=== PATIENT | male | born 1940 | race Hispanic/Latino ===

== ENCOUNTER 2019-08-19 13:07 | Inpatient (IN) | payer MEDICARE, OTHER ==
[~2019-08-19] VITALS: Ht 172.7 cm; Wt 50.8 kg
[2019-08-19] VITALS (7 sets, daily range): BP systolic 108–140; BP diastolic 56–69
[2019-08-19] MEDS ORDERED: SODIUM CHLORIDE 0.9% 1000ML 1,000 ML IV STA (13:59)
[2019-08-19] MEDS ORDERED: PANTOPRAZOLE 40 MG 10ML VIAL IV STA (13:59)
[2019-08-19] MEDS ORDERED: SODIUM CHLORIDE 0.9% 250ML 250 ML IV ONE (14:00)
[2019-08-19] MEDS ORDERED: FUROSEMIDE INJ 10 MG/ML 2 ML VIAL IV PRN (14:00)
[2019-08-19] MEDS ORDERED: DIATRIZOATE MEGL/DIATRIZOA SOD 30 ML BTL PO ONE (14:22)
[2019-08-19 14:23] LABS: BASOPHILS # (AUTO) 0.1 (0.0-0.1); BASOPHILS % 0.7 % (0.0-1.0); EOSINOPHILS # (AUTO) 0.1 (0.0-0.4); EOSINOPHILS % 1.4 % (0.0-6.0); HEMATOCRIT 21.1 % (38.2-49.6); LYMPHOCYTES # (AUTO) 1.1 (1.0-3.2); LYMPHOCYTES % 15.9 % (18.0-39.1); MEAN CORPUSCULAR HEMOGLOBIN 27.8 pg (28-32); MEAN CORPUSCULAR HGB CONC 29.4 g/dL (31-35); MEAN CORPUSCULAR VOLUME 94.6 fL (81-99); MONOCYTES # (AUTO) 0.8 (0.2-0.8); MONOCYTES % 11.2 % (4.4-11.3); NEUTROPHILS % 70.4 % (38.7-80.0); PLATELET COUNT 333 x10e3/uL (140-360); RED BLOOD COUNT 2.23 x10e6/uL (4.3-5.7); RED CELL DISTRIBUTION WIDTH 19.4 % (11.7-14.4)
[2019-08-19 14:33] LABS: INR 0.99; PROTHROMBIN TIME 13.7 seconds (11.9-14.5)
[2019-08-19 14:34] LABS: PARTIAL THROMBOPLASTIN TIME 31.9 seconds (23.8-35.5)
[2019-08-19 14:37] LABS: HEMOGLOBIN 6.2 g/dL (14.0-18.0)
--- NOTE | 2019-08-19 14:37 | Diagnostic Imaging Report ---
EXAMINATION: CHEST SINGLE (PORTABLE) INDICATION: Weakness COMPARISON: None FINDINGS: LINES/TUBES:EKG leads overlie the chest. LUNGS:The lungs are well-inflated. No focal consolidation or pulmonary edema. PLEURA:No pleural effusion or pneumothorax. MEDIASTINUM:The cardiomediastinal silhouette appears normal in size and shape. Atherosclerotic calcifications of the thoracic aorta. BONES/SOFT TISSUES:No acute osseous injury. ABDOMEN:No free air under the diaphragm. IMPRESSION: No focal pneumonia or pulmonary edema. Signed by: Roxana Borrego MD on 08/19/2019 2:34 PM
[2019-08-19 14:47] LABS: ALANINE AMINOTRANSFERASE 19 IU/L (0-55); ALBUMIN 3.1 g/dL (3.5-5.0); ALBUMIN/GLOBULIN RATIO 1.1 (0.8-2.0); ALKALINE PHOSPHATASE 79 IU/L (40-150); BLOOD UREA NITROGEN 26 mg/dL (7-26); BUN/CREATININE RATIO 27 (6-25); CALCIUM 8.1 mg/dL (8.4-10.2); CARBON DIOXIDE 24 mmol/L (22-29); CHLORIDE 103 mmol/L (98-107); CREATINE KINASE 130 IU/L (30-200); CREATININE, SERUM 0.95 mg/dL (0.72-1.25); EST GLOMERULAR FILTRATION RATE > 60 ML/MIN (60-); GLUCOSE 116 mg/dL (74-118); SODIUM 134 mmol/L (136-145)
[2019-08-19 14:53] LABS: AMYLASE 39 U/L (25-125); LIPASE 57 U/L (8-78)
[2019-08-19] MEDS ORDERED: OCTREOTIDE ACETATE 0.05 MG/ML AMP IV ONE (15:00)
[2019-08-19] MEDS ORDERED: MIDAZOLAM HCL 2 MG/2 ML VIAL ONE (15:17)
--- NOTE | 2019-08-19 15:26 | Emergency Department Note ---
History of Present Illnes History of Present Illness Chief Complaint: Abdominal Complaints History of Present Illness This is a 79 year old male SENT BY DR. YAMILKA ENCISO FOR ADMISSION TO DR. YOUNG. CLIENT STATES THAT HE HAS BEEN HAVING WEIGHT LOSS FOR YEARS AND THE FEELING OF HAVING FOOD STUCK IN HIS ESOPHAGUS, STATES THAT HE HAS BEEN HAVING THE PAIN AND NOT BEING ABLE TO EAT ANY FULL MEAL. HGB WAS AT 6.3 RECENTLY. INTE RMITTENT BLACK STOOLS Historian: Patient Arrival Mode: Car Crab Steamer Required: No Onset (how long ago): year(s) Radiation: Reports non-radiation Severity: moderate Onset quality: gradual Timing of current episode: constant Chronicity: new Context: Denies recent illness Relieving factors: none Exacerbating factors: none Associated symptoms: Reports denies other symptoms Treatments prior to arrival: none Past Medical/Family History Physician Review I have reviewed the patient's past medical and family history. Any updates have been documented here. Past Medical History Recent Fever: No Clinical Suspicion of Infectio: No New/Unexplained Change in Ment: No Past Medical History: Diabetes Social History Smoking Cessation: Former smoker Counseling Performed: No Alcohol Use: None Any Illegal Drug Use: No TB Exposure/Symptoms: No Physically hurt or threatened: No Other Any Pre-Existing Lines (PICC,: No Is patient up to date on immun: Yes Last Flu: utd Last Pneumovax: utd Review of Systems Review of Systems Constitutional: Reports as per HPI, Reports other (WEIGHT LOSS) EENTM: Reports no symptoms Cardiovascular: Reports no symptoms Respiratory: Reports no symptoms Gastrointestinal: Reports as per HPI, Reports abdominal pain (INTERMITTENT RETA ABD PAIN), Reports other (BLACK STOOLS) Genitourinary: Reports no symptoms Musculoskeletal: Reports no symptoms Integumentary: Reports no symptoms Neurological: Reports no symptoms Psychological: Reports no symptoms Endocrine: Reports no symptoms Hematological/Lymphatic: Reports no symptoms Physical Exam Related Data Allergies: Coded Allergies: No Known Allergies (Unverified , 08/19/19) Triage Vital Signs Vital Signs Date Time Temp Pulse Resp B/P (MAP) Pulse Ox O2 Delivery O2 Flow Rate FiO2 08/19/19 13:42 98.8 86 16 117/59 100 Vital signs reviewed: Yes Physical Exam CONSTITUTIONAL Constitutional: Present cachectic, Present ill appearing HENT HENT: Present normocephalic, Present atraumatic, Present oropharynx clear/moist, Present nose normal HENT L/R: Present left ext ear normal, Present right ext ear normal EYES Eyes: Reports PERRL, Reports conjunctivae normal NECK Neck: Present ROM normal PULMONARY Pulmonary: Present effort normal, Present breath sounds normal CARDIOVASCULAR Cardiovascular: Present regular rhythm, Present heart sounds normal, Present capillary refill normal, Present normal rate GASTROINTESTINAL Abdominal: Present soft, Present nontender, Present bowel sounds normal GENITOURINARY Genitourinary: Present exam deferred SKIN Skin: Present warm, Present dry MUSCULOSKELETAL Musculoskeletal: Present ROM normal NEUROLOGICAL Neurological: Present alert, Present oriented x 3, Present no gross motor or sensory deficits PSYCHOLOGICAL Psychological: Present mood/affect normal, Present judgement normal Results Laboratory Result Diagram: 08/19/19 1410 08/19/19 1410 Laboratory Laboratory Tests Test 08/19/19 14:10 White Blood Count 7.12 x10e3/uL (4.8-10.8) Red Blood Count 2.23 x10e6/uL (4.3-5.7) Hemoglobin 6.2 g/dL (14.0-18.0) Hematocrit 21.1 % (38.2-49.6) Mean Corpuscular Volume 94.6 fL (81-99) Mean Corpuscular Hemoglobin 27.8 pg (28-32) Mean Corpuscular Hemoglobin Concent 29.4 g/dL (31-35) Red Cell Distribution Width 19.4 % (11.7-14.4) Platelet Count 333 x10e3/uL (140-360) Neutrophils (%) (Auto) 70.4 % (38.7-80.0) Lymphocytes (%) (Auto) 15.9 % (18.0-39.1) Monocytes (%) (Auto) 11.2 % (4.4-11.3) Eosinophils (%) (Auto) 1.4 % (0.0-6.0) Basophils (%) (Auto) 0.7 % (0.0-1.0) Neutrophils # (Auto) 5.0 (2.1-6.9) Lymphocytes # (Auto) 1.1 (1.0-3.2) Monocytes # (Auto) 0.8 (0.2-0.8) Eosinophils # (Auto) 0.1 (0.0-0.4) Basophils # (Auto) 0.1 (0.0-0.1) Absolute Immature Granulocyte (auto 0.03 x10e3/uL (0-0.1) Prothrombin Time 13.7 seconds (11.9-14.5) Prothromb Time International Ratio 0.99 Activated Partial Thromboplast Time 31.9 seconds (23.8-35.5) Sodium Level 134 mmol/L (136-145) Potassium Level 4.0 mmol/L (3.5-5.1) Chloride Level 103 mmol/L (98-107) Carbon Dioxide Level 24 mmol/L (22-29) Anion Gap 11.0 mmol/L (8-16) Blood Urea Nitrogen 26 mg/dL (7-26) Creatinine 0.95 mg/dL (0.72-1.25) Estimat Glomerular Filtration Rate > 60 ML/MIN (60-) BUN/Creatinine Ratio 27 (6-25) Glucose Level 116 mg/dL (74-118) Calcium Level 8.1 mg/dL (8.4-10.2) Total Bilirubin 0.3 mg/dL (0.2-1.2) Aspartate Amino Transf (AST/SGOT) 24 IU/L (5-34) Alanine Aminotransferase (ALT/SGPT) 19 IU/L (0-55) Alkaline Phosphatase 79 IU/L (40-150) Creatine Kinase 130 IU/L (30-200) Creatine Kinase MB 3.10 ng/mL (0-5.0) Troponin I 0.007 ng/mL (0-0.300) Total Protein 5.8 g/dL (6.5-8.1) Albumin 3.1 g/dL (3.5-5.0) Globulin 2.7 g/dL (2.3-3.5) Albumin/Globulin Ratio 1.1 (0.8-2.0) Amylase Level 39 U/L (25-125) Lipase 57 U/L (8-78) Lab results reviewed: Yes Imaging Imaging results reviewed: Yes Impressions EXAMINATION: CHEST SINGLE (PORTABLE) INDICATION: Weakness COMPARISON: None FINDINGS: LINES/TUBES:EKG leads overlie the chest. LUNGS:The lungs are well-inflated. No focal consolidation or pulmonary edema. PLEURA:No pleural effusion or pneumothorax. MEDIASTINUM:The cardiomediastinal silhouette appears normal in size and shape. Atherosclerotic calcifications of the thoracic aorta. BONES/SOFT TISSUES:No acute osseous injury. ABDOMEN:No free air under the diaphragm. IMPRESSION: No focal pneumonia or pulmonary edema. Signed by: Roxana Borrego MD on 08/19/2019 2:34 PM Assessment & Plan Medical Decision Making MDM SENT FOR ANEMIA & WT LOSS - CHECK CBC, CHEM'S, PT/PTT, DHRUV/LIPASE, CT ABD/PELVIS - EVAL FOR GI BLOOD LOSS, SEVERE ANEMIA REQUIRING BLOOD TRANSFUSION, PANCREATITIS, RENAL INSUFF Reassessment Reassessment D/W DR BRANHAM AND DR Laverne [place] Assessment & Plan Final Impression: (1) Weight loss (2) GI bleed Depart Disposition: ADMITTED Last Vital Signs Date Time Temp Pulse Resp B/P (MAP) Pulse Ox O2 Delivery O2 Flow Rate FiO2 08/19/19 14:24 98.1 71 13 121/59 100 Medications in the ED Pantoprazole Sodium 80 mg ONCE STAT IV Last administered on 08/19/19at 14:45; Admin Dose 80 MG; Start 08/19/19 at 13:59; Stop 08/19/19 at 14:23; Status DC Sodium Chloride 1,000 ml @ 0 mls/hr Q0M STAT IV Last administered on 08/19/19at 14:45; Admin Dose 999 MLS/HR; Start 08/19/19 at 13:59; Stop 08/19/19 at 14:03; Status DC Sodium Chloride 250 ml @ 0 mls/hr ONCE ONCE IV ; Start 08/19/19 at 14:00; Stop 08/19/19 at 14:03; Status DC Furosemide 20 mg ONCE PRN IV SHORTNESS OF BREATH; Start 08/19/19 at 14:00; Stop 09/18/19 at 13:59 Diatrizoate Meglum/ Diatrizoate Sod 30 ml STK-MED ONCE PO ; Start 08/19/19 at 14:22; Stop 08/19/19 at 14:16; Status DC Pantoprazole Sodium 40 mg Q12HR IV ; Start 08/19/19 at 21:00; Stop 09/18/19 at 20:59; Status UNV Octreotide Acetate 0.05 mg ONCE ONCE IV ; Start 08/19/19 at 15:00; Stop 08/19/19 at 15:02; Status DC Octreotide Acetate 500 mcg/ Sodium Chloride 2 ml @ 2 mls/hr Q10H IV ; Start 08/19/19 at 15:00; Stop 09/18/19 at 14:59; Status UNV Dextrose/Sodium Chloride 1,000 ml @ 100 mls/hr Q10H IV ; Start 08/19/19 at 15:00; Stop 08/20/19 at 10:59; Status UNV DERICK BAILEY MD Aug 19, 2019 15:26
[2019-08-19] MEDS: OCTREOTIDE ACETATE IV SCH (16:00)
[2019-08-19] MEDS: DEXTROSE 5%/0.9% SOD CHL 1,000 ML IV SCH (16:00)
[2019-08-19] MEDS: SODIUM CHLORIDE 0.9% IV SCH (16:00)
--- NOTE | 2019-08-19 16:01 | NUR ---
consent for blood signed and placed on the clipboard
--- NOTE | 2019-08-19 16:31 | Diagnostic Imaging Report ---
EXAM: CT Abdomen and Pelvis WITH intravenous contrast INDICATION: Abdominal pain COMPARISON: Chest radiograph of earlier the same day TECHNIQUE: Abdomen and pelvis were scanned utilizing a multidetector helical scanner from the lung base to the pubic symphysis after administration of IV contrast. Coronal and sagittal reformations were obtained. Routine protocol was performed. Scan was performed during portal venous phase. IV CONTRAST: 100mL of Isovue 370 ORAL CONTRAST: Gastrografin RADIATION DOSE: Total DLP: 172 mGy*cm Dose modulation, iterative reconstruction, and/or weight based adjustment of the mA/kV was utilized to reduce the radiation dose to as low as reasonably achievable. FINDINGS: LOWER THORAX: Partially visualized mild bronchial wall thickening and distal bronchial mucus plugging in the right middle lobe and lingula, possibly related to aspiration. HEPATOBILIARY: No focal liver lesion. No biliary ductal dilation. Mild hepatic steatosis. Unremarkable gallbladder. SPLEEN: No splenomegaly. PANCREAS: No focal masses or ductal dilatation. ADRENALS: No adrenal nodules. KIDNEYS/URETERS: Mild bilateral hydronephrosis. No definite obstructing calculus. No solid renal mass lesion. 2.7 cm left upper pole renal cyst. PELVIC ORGANS/BLADDER: Bladder distention and irregular appearance of the bladder wall without focal mass lesion. The prostate is enlarged, measuring up to 5.9 x 5.1 x 5.4 cm (volume estimate 85 cc). PERITONEUM / RETROPERITONEUM: No free air or fluid. LYMPH NODES: No lymphadenopathy. VESSELS: Scattered atherosclerotic calcifications of the nonaneurysmal abdominal aorta and major branches. GI TRACT: Distended stomach filled with contrast. Diffuse wall thickening and edematous appearance of the distal antrum and pyloric region where the wall measures up to 2.5 cm. No focal mass. BONES AND SOFT TISSUES: No acute osseous injury. Degenerative changes of the visualized spine. No suspicious lytic or blastic lesions. IMPRESSION: Diffuse distal stomach wall thickening measuring up to 2.5 cm. No focal mass. Findings can be seen with an infectious/inflammatory etiology such as gastritis or alternatively in the setting of a lymphoproliferative process. Marked prostatomegaly. Distended bladder with irregular appearance of the bladder wall without focal mass lesion. Findings are suggestive of chronic bladder outlet obstruction. Mild associated bilateral hydronephrosis without obstructing calculus. Signed by: Roxana Borrego MD on 08/19/2019 4:28 PM
[2019-08-19] MEDS ORDERED: METFORMIN HCL500 MG PO (16:49)
[2019-08-19] MEDS ORDERED: IRON PO (16:49)
[2019-08-19] MEDS ORDERED: SODIUM CHLORIDE 0.9% 250ML 250 ML ONE (17:07)
[2019-08-19] MEDS ORDERED: SODIUM CHLORIDE 0.9% 50ML 50 ML ONE (19:57)
[2019-08-19] MEDS ORDERED: IOPAMIDOL 370 MG/ML 200 ML INFUS..BTL INJ ONE (19:57)
[2019-08-19 20:51] LABS: BASOPHILS % 0.5 % (0.0-1.0); EOSINOPHILS # (AUTO) 0.2 (0.0-0.4); EOSINOPHILS % 3.1 % (0.0-6.0); LYMPHOCYTES # (AUTO) 1.3 (1.0-3.2); LYMPHOCYTES % 21.2 % (18.0-39.1); MEAN CORPUSCULAR HEMOGLOBIN 27.9 pg (28-32); MEAN CORPUSCULAR HGB CONC 29.7 g/dL (31-35); MONOCYTES % 16.8 % (4.4-11.3); NEUTROPHILS # (AUTO) 3.4 (2.1-6.9); NEUTROPHILS % 58.1 % (38.7-80.0); PLATELET COUNT 263 x10e3/uL (140-360); RED BLOOD COUNT 2.15 x10e6/uL (4.3-5.7); RED CELL DISTRIBUTION WIDTH 19.3 % (11.7-14.4)
[2019-08-19] MEDS: PANTOPRAZOLE 40 MG 10ML VIAL IV SCH (20:52)
[2019-08-19 21:03] LABS: HEMATOCRIT 20.2 % (38.2-49.6)
--- NOTE | 2019-08-19 23:21 | NUR ---
Patient seen and evaluated History of present illness: 79-year-old gentleman who presented to the emergency department as advised by his primary care physician for evaluation of left open weight and feeling like his food gets stuck in his esophagus. The patient has not been eating well and was noted to have severe anemia hemoglobin was 6.3. In addition to this complaining of intermittent black stools. Denies hematemesis. Has been complaining of abdominal pain, not significant. There is no history of chest pain, no shortness of breath, no fever no chills. I went ahead and discussed patient condition with Dr. Milad Higgins and the plan is for the patient to undergo EGD. The patient did have CT scan of the abdomen done and the findings were that of diffuse distal stomach wall thickening measuring up to 2.5 cm. No focal mass. Findings could be with an infectious/inflammatory etiology such as gastritis or alternatively in the setting of a lymphoproliferative process. Other findings were that of marketed prostatomegaly. Distended bladder with irregular appearance of the bladder wall without focal mass lesions. Findings were suggestive of chronic bladder outlet obstruction. Mild associated bilateral hydronephrosis without extubation [id number] obstructing calculus. We went ahead and proceeded to order a transfusion of packed red blood cells. Past medical history: There is a history of diabetes mellitus type 2, no history myocardial infarction. No CVA. No previous gastrointestinal problems. Family history: Noncontributory. Social history: No tobacco. No alcohol abuse. Allergies: No known drug allergies. Review of system: Constitutional: No Fever, No chills, No General weakness HEENT: No headaches. Cardiovascular: Denies chest pain, palpitations, PND, swelling of the legs. Respiratory: No Cough, hemoptysis or SOB GI: Denies Nausea/V/D, hematemesis, melena. : Denies Hematuria, Dysuria, Frequency Musculoskeletal: Denies joint pain Neuro: No focal weakness Psych: No anxiety or depression. Skin: No rashes, Itching, Hives Physical exam: General patient alert oriented person time place. Severely malnourished patient. Underweight. Vital signs: Blood pressure 117/59, respiration 16, pulse 86, temperature 98.8 HEENT: No gross abnormalities Neck: Supple no JVD Lungs: Clear to auscultation Heart: Regular rate and rhythm, no murmurs no gallops Abdomen: Soft non tender, no guarding. Extremities: No edema Neurologic: Alert oriented 3, no focal weakness. Psychiatrist: Normal mood, normal judgment. Skin: No rashes Lab data: Hemoglobin 6.2, WBC 7.12, platelet count 333,000. Sodium 134, potassium 4.0, chloride 103, CO2 24, BUN 26, creatinine 0.95 Chest x-rays: No focal pneumonia or pulmonary edema. Medications in the ED Pantoprazole Sodium 80 mg ONCE STAT IV Last administered on 08/19/19at 14:45; Admin Dose 80 MG; Start 08/19/19 at 13:59; Stop 08/19/19 at 14:23; Status DC Sodium Chloride 1,000 ml @ 0 mls/hr Q0M STAT IV Last administered on 08/19/19at 14:45; Admin Dose 999 MLS/HR; Start 08/19/19 at 13:59; Stop 08/19/19 at 14:03; Status DC Sodium Chloride 250 ml @ 0 mls/hr ONCE ONCE IV ; Start 08/19/19 at 14:00; Stop 08/19/19 at 14:03; Status DC Furosemide 20 mg ONCE PRN IV SHORTNESS OF BREATH; Start 08/19/19 at 14:00; Stop 09/18/19 at 13:59 Diatrizoate Meglum/ Diatrizoate Sod 30 ml STK-MED ONCE PO ; Start 08/19/19 at 14:22; Stop 08/19/19 at 14:16; Status DC Pantoprazole Sodium 40 mg Q12HR IV ; Start 08/19/19 at 21:00; Stop 09/18/19 at 20:59; Status UNV Octreotide Acetate 0.05 mg ONCE ONCE IV ; Start 08/19/19 at 15:00; Stop 08/19/19 at 15:02; Status DC Octreotide Acetate 500 mcg/ Sodium Chloride 2 ml @ 2 mls/hr Q10H IV ; Start 08/19/19 at 15:00; Stop 09/18/19 at 14:59; Status UNV Dextrose/Sodium Chloride 1,000 ml @ 100 mls/hr Q10H IV ; Start 08/19/19 at 15:00; Stop 08/20/19 at 10:59; Status UNV Assessment: Severe anemia GI bleeding Weight loss Diabetes mellitus type 2 Plan of care: Request GI consultation Transfusion of Packed Red blood cells. Monitor I's and O's. Glycemic control
[2019-08-20] VITALS (16 sets, daily range): BP systolic 98–178; BP diastolic 59–87
--- NOTE | 2019-08-20 00:48 | NUR ---
SPOKE TO MD YOUNG. NEW ORDERS RECEIVED.
[2019-08-20] MEDS ORDERED: DEXTROSE 50% SYRINGE 50 ML IV PRN (01:00)
[2019-08-20] MEDS: DEXTROSE 5%/0.9% SOD CHL 1,000 ML IV SCH (01:39)
[2019-08-20] MEDS ORDERED: SODIUM CHLORIDE 0.9% 250ML 250 ML ONE (01:39)
[2019-08-20 02:46] LABS: BASOPHILS % 0.7 % (0.0-1.0); EOSINOPHILS # (AUTO) 0.2 (0.0-0.4); EOSINOPHILS % 3.4 % (0.0-6.0); HEMATOCRIT 25.4 % (38.2-49.6); HEMOGLOBIN 7.7 g/dL (14.0-18.0); LYMPHOCYTES % 17.5 % (18.0-39.1); MEAN CORPUSCULAR HEMOGLOBIN 27.8 pg (28-32); MEAN CORPUSCULAR HGB CONC 30.3 g/dL (31-35); MEAN CORPUSCULAR VOLUME 91.7 fL (81-99); MONOCYTES # (AUTO) 0.9 (0.2-0.8); MONOCYTES % 14.8 % (4.4-11.3); NEUTROPHILS # (AUTO) 3.7 (2.1-6.9); NEUTROPHILS % 63.3 % (38.7-80.0); PLATELET COUNT 295 x10e3/uL (140-360); RED BLOOD COUNT 2.77 x10e6/uL (4.3-5.7); RED CELL DISTRIBUTION WIDTH 18.4 % (11.7-14.4)
--- NOTE | 2019-08-20 04:06 | NUR ---
Dr. Tolbert ordered for labs and stated it an be collected early am, nurse made aware.
--- NOTE | 2019-08-20 04:50 | NUR ---
PATIENT RECEIVED 2 UNITS OF BLOOD. NO ADVERSE REACTIONS NOTED.
[2019-08-20 06:48] LABS: BASOPHILS # (AUTO) 0.1 (0.0-0.1); EOSINOPHILS # (AUTO) 0.2 (0.0-0.4); EOSINOPHILS % 2.9 % (0.0-6.0); HEMATOCRIT 31.8 % (38.2-49.6); LYMPHOCYTES # (AUTO) 1.1 (1.0-3.2); LYMPHOCYTES % 17.1 % (18.0-39.1); MEAN CORPUSCULAR HEMOGLOBIN 28.4 pg (28-32); MEAN CORPUSCULAR HGB CONC 31.4 g/dL (31-35); MEAN CORPUSCULAR VOLUME 90.3 fL (81-99); MONOCYTES # (AUTO) 0.9 (0.2-0.8); NEUTROPHILS # (AUTO) 3.9 (2.1-6.9); NEUTROPHILS % 63.7 % (38.7-80.0); PLATELET COUNT 275 x10e3/uL (140-360); RED BLOOD COUNT 3.52 x10e6/uL (4.3-5.7)
--- NOTE | 2019-08-20 07:00 | NUR ---
REPORT GIVEN TO DAYSHIFT NURSE. PATIENT IN STABLE CONDITION. NO SIGNS OF IV INFILTRATION. BED LOCKED AND IN LOW POSITION. CALL LIGHT WITHIN REACH.
[2019-08-20 07:02] LABS: ANION GAP 10.1 mmol/L (8-16); BLOOD UREA NITROGEN 16 mg/dL (7-26); BUN/CREATININE RATIO 19 (6-25); CALCIUM 7.9 mg/dL (8.4-10.2); CARBON DIOXIDE 24 mmol/L (22-29); CHLORIDE 107 mmol/L (98-107); CREATININE, SERUM 0.85 mg/dL (0.72-1.25); EST GLOMERULAR FILTRATION RATE > 60 ML/MIN (60-); GLUCOSE 210 mg/dL (74-118); POTASSIUM 4.1 mmol/L (3.5-5.1); SODIUM 137 mmol/L (136-145)
[2019-08-20 07:34] LABS: FERRITIN 17.98 ng/mL (21.81-274.66)
--- NOTE | 2019-08-20 08:19 | Operative Report ---
DATE OF PROCEDURE: 08/20/2019 SURGEON: Milad Tolbert MD PROCEDURE: EGD with esophageal dilatation and biopsies. INDICATIONS FOR PROCEDURE: Dysphagia, anemia, weight loss. MEDICATIONS: The patient was done under MAC, please see anesthesiologist's note. PROCEDURE IN DETAIL: With the patient in left lateral decubitus position, a flexible fiberoptic Olympus gastroscope was introduced into the esophagus under direct visualization without any difficulty. Mucosa overlying the distal esophagus revealed diffuse erythema. The esophagus was dilated to size 52-[place]. The scope was then advanced with ease into the stomach. There were some moderate amount of retained solid and liquid debris in the stomach precluding visualization of the fundus and the upper body of the stomach. The mucosa overlying the antrum was friable, nodular, and the tissue felt somewhat indurated. Multiple biopsies were obtained. The scope was then advanced all the way to the second portion of the duodenum. The scope was then withdrawn slowly. Mucosa overlying the proximal second portion and the duodenal bulb appeared to be within normal limits. The scope was then withdrawn back into the stomach and retroflexed, and the fundus, the cardia, and the proximal body of the stomach could not be visualized due to the retained aforementioned food stuff. The scope was then straightened out, it was subsequently withdrawn. The patient tolerated the procedure well. IMPRESSION: 1. Distal esophagitis. 2. Esophagus dilated to size 52-[place] [employer] [place]. 3. Antrum, nodular, firm, and friable, multiple biopsies obtained. PLAN: Follow up histology. Continue PPI therapy. Milad Tolbert MD [facility] [place] /[id number] cc: Benito Aranda MD Zen Machado MD
--- NOTE | 2019-08-20 08:30 | NUR ---
PATIENT BACK TO UNIT FROM ENDO. REPORT RECEIVED FROM MERYL FARAH. PT HAD AN EGD WITH DILATION AND BIOPSY; FINDINGS ARE MILD AMOUNT OF RETAINED FOOD IN THE STOMACH. DENIED PAIN AT THIS TIME. V/S 97.4-65-16-120/61 AND 100% ON RA. KITCHEN CALLED FOR BREAKFAST TRAY.
[2019-08-20] MEDS: INSULIN LISPRO 100 UNIT/1 ML 3ML VIAL SQ SCH ×4 (08:40→21:00)
[2019-08-20] MEDS: PANTOPRAZOLE 40 MG 10ML VIAL IV SCH ×2 (09:09→21:29)
--- NOTE | 2019-08-20 11:40 | NUR ---
PATIENT IN BED TALKING TO DAUGHTER VISITING. CALL LIGHT AT REACH.
[2019-08-20] MEDS: SUCRALFATE 1 GM/10 ML SUSP PO SCH ×3 (11:55→21:13)
[2019-08-20] MEDS: SODIUM CHLORIDE 0.9% IV SCH (12:00)
[2019-08-20] MEDS: OCTREOTIDE ACETATE IV SCH (12:00)
[2019-08-20 12:07] LABS: BASOPHILS % 0.5 % (0.0-1.0); EOSINOPHILS # (AUTO) 0.1 (0.0-0.4); EOSINOPHILS % 1.5 % (0.0-6.0); LYMPHOCYTES # (AUTO) 1.2 (1.0-3.2); LYMPHOCYTES % 14.3 % (18.0-39.1); MEAN CORPUSCULAR HEMOGLOBIN 28.3 pg (28-32); MEAN CORPUSCULAR HGB CONC 31.3 g/dL (31-35); MEAN CORPUSCULAR VOLUME 90.7 fL (81-99); MONOCYTES # (AUTO) 1.2 (0.2-0.8); NEUTROPHILS % 69.5 % (38.7-80.0); PLATELET COUNT 260 x10e3/uL (140-360); RED BLOOD COUNT 3.53 x10e6/uL (4.3-5.7); RED CELL DISTRIBUTION WIDTH 18.7 % (11.7-14.4)
--- NOTE | 2019-08-20 14:56 | NUR ---
Nutrition Intervention Note RD Recommendation(s) for Physician: -Continue current diet as ordered -Glucerna with meals for added nutrition to promote weight gain The patient meets criteria for unspecified SEVERE protein-calorie malnutrition. Plan of Care: RD following, monitoring for tolerance and adequacy, oral supplement recommendation Nutrition reason for involvement: Nutrition Risk Trigger RD Assessment (08/20/19) Pt is an 79 year old male admitted with GI bleed. Pt had an EGD with dilation and biopsy this morning. Pt is currently on a GI soft diet. Prior to admission, pt reports eating <50% of his meals for the past month. Pt also stated he had lost weight and used to weigh 125 lbs in at the beginning of May. Pt currently has a weight of 112 lbs in chart. This would be a 10% weight loss in ~ 3 months, which is considered to be significant weight loss. No N/V or chewing/swallowing issues at this time. Recommend a nutrition supplement be provided with meals for added nutrition to promote weight gain. Will continue to monitor. Principal Problems/Diagnoses: GI bleed PMH: type 2 diabetes mellitus GI: soft, non-tender abdomen Skin: intact Labs: (08/20/19) Glu 210, Ca 7.9 Meds: octeotride, carafate, insulin, protonix, lasix PRN Ht: 68 inches Wt: 112 lbs BMI: 17.0 kg/m2 (underweight) IBW: 140 lbs Malnutrition Evaluation (08/20/19) The patient meets criteria for unspecified SEVERE protein-calorie malnutrition. Energy intake: <75% of estimated energy requirements for 1 month Weight loss: >7.5% in 3 months (Acute) Fat loss: unable to evaluate Muscle loss: unable to evaluate Supporting Evidence: Fluid accumulation: unable to evaluate Functional Status: unable to evaluate Nutrition Prescription (Diet Order): GI soft Estimated Nutritional Needs: 9800-3435 calories/day (30-35 calories/kg CBW) 76-102 g protein/day (1.5-2 g pro/kg CBW) Diet Adequacy: Not meeting calorie needs, Not meeting protein needs Tolerance: Tolerating PO Diet Education Needs Assessment: RD is available for diet education as needed Nutrition Care Level: moderate Nutrition Diagnosis: Severe malnutrition related to h/o inadequate intake as evidenced by pt meeting <75% of estimated energy needs for 1 month and >7.5% weight loss in 3 months. Goal: Patient will meet 75-100% of estimated needs by follow up Progress: N/A Interventions: -fiber-modified diet, Commercial beverage Monitoring/Evaluation: -Total energy intake, Total protein intake, Modified diet, Liquid supplement, Weight change Signed: Shereen Roa RD, LD
--- NOTE | 2019-08-20 15:34 | NUR ---
PATIENT IN BED RESTING WITH EYES CLOSED, NO DISTRESS NOTED. CALL LIGHT AT REACH.
[2019-08-20 18:21] LABS: BASOPHILS % 0.5 % (0.0-1.0); EOSINOPHILS # (AUTO) 0.1 (0.0-0.4); EOSINOPHILS % 1.2 % (0.0-6.0); HEMATOCRIT 30.1 % (38.2-49.6); HEMOGLOBIN 9.4 g/dL (14.0-18.0); LYMPHOCYTES # (AUTO) 0.9 (1.0-3.2); LYMPHOCYTES % 11.4 % (18.0-39.1); MEAN CORPUSCULAR HEMOGLOBIN 28.4 pg (28-32); MEAN CORPUSCULAR HGB CONC 31.2 g/dL (31-35); MEAN CORPUSCULAR VOLUME 90.9 fL (81-99); MONOCYTES % 12.8 % (4.4-11.3); NEUTROPHILS # (AUTO) 5.7 (2.1-6.9); NEUTROPHILS % 73.7 % (38.7-80.0); PLATELET COUNT 256 x10e3/uL (140-360); RED BLOOD COUNT 3.31 x10e6/uL (4.3-5.7); RED CELL DISTRIBUTION WIDTH 18.9 % (11.7-14.4)
--- NOTE | 2019-08-20 19:09 | NUR ---
BED SIDE SHIFT REPORT GIVEN TO ON COMING NURSE, PATIENT IN BED RESTING WITH CALL LIGHT AT REACH.
--- NOTE | 2019-08-20 20:13 | NUR ---
RECEIVED PT IN BED AOX3 DENIES PAIN RT AC 18 G AND LEFT AC 20G .RESPIRATIONS ARE EVEN AND UNLABORED .CALL LIGHT WITH IN REACH .CONTINUE TO MONITOR
--- NOTE | 2019-08-20 21:51 | Progress Note ---
DATE: 08/20/2019 SUBJECTIVE: The patient is doing fine. At the time of evaluation, the patient stated that he is eating better, swallowing is concerned. He has been complaining of cramps on the lower extremities. He denies nausea. No vomiting. No diarrhea at this time. No chest pain. No shortness of breath. No fever. No chills. No urinary symptoms. OBJECTIVE: GENERAL: The patient has been alert and oriented to person, time, and place. The patient is in no distress. VITAL SIGNS: Blood pressure 98/59, respirations 18, pulse 64, and temperature 98.0. HEENT: Normocephalic and atraumatic. NECK: Supple. No JVD. LUNGS: Clear to auscultation. HEART: Regular rate and rhythm. ABDOMEN: Soft. EXTREMITIES: No edema. NEURO: No focal. The patient does not look well nourished. LABORATORY DATA: CBC revealed hemoglobin 9.4, white blood cell count 7.75, and platelet count 256,000. Chem profile revealed sodium 137, potassium 4.1, chloride 107, CO2 24, BUN 16, creatinine 0.75, blood sugar 210, and calcium level 7.9. ASSESSMENT: 1. Anemia secondary to gastrointestinal bleeding. 2. History of loss of weight. 3. Diabetes mellitus type 2. PLAN OF CARE: Continue to monitor H and H. Advance diet as tolerated. Glycemic control. The patient is seen, might have gastric cancer and will need followup with oncologist and General Surgery. MD ANGELO Arvizu/SANTIAGO /[id number]
[2019-08-21] VITALS: BP 113/70
[2019-08-21 04:00] VITALS: BP 121/79
--- NOTE | 2019-08-21 05:23 | NUR ---
PT RESTED DURING THE NIGHT .DENIES PAIN .CALL LIGHT WITH IN REACH .CONTINUE TO MONITOR
[2019-08-21 06:32] LABS: BASOPHILS % 0.5 % (0.0-1.0); EOSINOPHILS # (AUTO) 0.2 (0.0-0.4); EOSINOPHILS % 2.3 % (0.0-6.0); HEMATOCRIT 31.1 % (38.2-49.6); HEMOGLOBIN 9.6 g/dL (14.0-18.0); LYMPHOCYTES # (AUTO) 1.1 (1.0-3.2); LYMPHOCYTES % 14.2 % (18.0-39.1); MEAN CORPUSCULAR HEMOGLOBIN 28.5 pg (28-32); MEAN CORPUSCULAR HGB CONC 30.9 g/dL (31-35); MEAN CORPUSCULAR VOLUME 92.3 fL (81-99); MONOCYTES % 14.1 % (4.4-11.3); NEUTROPHILS # (AUTO) 5.1 (2.1-6.9); NEUTROPHILS % 68.6 % (38.7-80.0); PLATELET COUNT 254 x10e3/uL (140-360); RED BLOOD COUNT 3.37 x10e6/uL (4.3-5.7); RED CELL DISTRIBUTION WIDTH 18.7 % (11.7-14.4)
--- NOTE | 2019-08-21 07:04 | NUR ---
BEDSIDE REPORT GIVEN TO THE ONCOMING NURSE
--- NOTE | 2019-08-21 07:20 | NUR ---
PATIENT IN BED WITH HEAD OF BED ELEVATED TALKING ON THE PHONE, NO DISTRESS NOTED. ALL PERSONAL ITEMS CLOSE TO PATIENT, CALL LIGHT AT REACH.
[2019-08-21] MEDS: INSULIN LISPRO 100 UNIT/1 ML 3ML VIAL SQ SCH ×3 (07:30→16:30)
[2019-08-21] MEDS: SUCRALFATE 1 GM/10 ML SUSP PO SCH ×3 (07:30→16:30)
[2019-08-21 07:34] VITALS: BP 120/67
[2019-08-21 08:38] VITALS: BP 120/67
[2019-08-21] MEDS: PANTOPRAZOLE 40 MG 10ML VIAL IV SCH (09:14)
[2019-08-21] MEDS ORDERED: NEXIUM40 MG PO (10:05)
[2019-08-21] MEDS ORDERED: FINASTERIDE5 MG PO (10:05)
[2019-08-21] MEDS ORDERED: FLOMAX0.4 MG PO (10:05)
[2019-08-21] MEDS ORDERED: MULTIVITAMINS1 EAC6 PO (10:05)
--- NOTE | 2019-08-21 11:28 | NUR ---
PATIENT ASSISTED WITH DIAPER CHANGE. IN BED WITH CALL LIGHT AT REACH.
[2019-08-21 12:31] VITALS: BP 103/63
[2019-08-21 15:29] VITALS: BP 110/69
--- NOTE | 2019-08-21 18:00 | NUR ---
PATIENT DISCHARGED HOME. DISCHARGE INSTRUCTIONS, PRESCRIPTIONS, AND FOLLOW UP GIVEN TO PATIENT AND DAUGHTER, THEY VERBALIZED UNDERSTANDING. IV TO LEFT AC REMOVED WITH TIP INTACT. ALL PERSONAL ITEMS TAKEN WITH PATIENT. LEFT UNIT PER WHEEL CHAIR TO FRONT LOBBY IN STABLE CONDITION.
--- NOTE | 2019-08-21 20:45 | Discharge Summary ---
PRIMARY CARE DOCTOR: Dr. Zen Machado. This is coverage for Dr. Aranda. PRIMARY DIAGNOSES: Include severe anemia, multifactorial. Including GI blood loss. SECONDARY DIAGNOSES: Include: 1. Distal esophagitis. 2. Solid dysphagia significant. 3. Postoperative state, status post esophageal dilatation. 4. Retained gastric contents during endoscopy, possible functional gastroparesis or other issue. 5. Diabetes. HOSPITAL COURSE: The patient was having some weight loss and feels like food gets stuck in his esophagus. He has not been eating well. Hemoglobin was noted at 6.3. Intermittent black stools. He was sent to emergency room. The patient had CT abdomen demonstrating diffuse distal stomach wall thickening measuring up to 2.5 cm. No focal mass noted. The patient underwent endoscopy with findings as above. Additional CAT scan finding had shown marked prostatomegaly and distended bladder with a regular appearance of bladder wall without focal mass lesions. There was mild associated bilateral hydronephrosis. The patient on following day resumed and showed that he was eating very well. He was allowed for further outpatient followup in care. So, his hemoglobin was 6.0 coming in the hospital, but upon discharge was 9.6. Platelets are 275. Creatinine was 0.95. LFTs were unremarkable mostly, albumin 3.1. Coagulation times are normal. Stool occult blood was positive. FOLLOWUP TEST: Multiple gastric biopsies were taken and need followup. Empiric prostate therapy was started and the patient was added on PPI therapy during his hospitalization. FOLLOWUP: Milad Zavala. MEDICATION ON DISCHARGE: Please see discharge medication record for details. DIET: GI bland diet, soft until he is more comfortable. Greater than 30 minutes in direct care and coordination on this date for discharge. MD FELIX Freeman/MODL /[id number]
[2019-08-21] MEDS ORDERED: TAMSULOSIN HCL 0.4 MG CAP PO SCH (21:00)
== END 2019-08-21 17:54 | disposition home or self-care (01) | DRG 378 ==
LOC: ER 13:07 → ERHOLD 14:57 → OBSVTOIN 15:01 → MED/SURG3 16:33
PROVIDERS: ADMIT Internal Medicine; ATTEND Internal Medicine
PROC: 30233N1 Transfusion of Nonautologous Red Blood Cells into Peripheral Vein, Percutaneous Approach (ICD-10-PCS; 2019-08-19)
PROC: 0D758ZZ Dilation of Esophagus, Via Natural or Artificial Opening Endoscopic (ICD-10-PCS; principal; 2019-08-20 07:25)
PROC: 0DB78ZX Excision of Stomach, Pylorus, Via Natural or Artificial Opening Endoscopic, Diagnostic (ICD-10-PCS; 2019-08-20 07:25)
DX: K92.2 Gastrointestinal hemorrhage, unspecified (principal); N13.30 Unspecified hydronephrosis; R63.4 Abnormal weight loss; D50.0 Iron deficiency anemia secondary to blood loss (chronic); K20.9 Esophagitis, unspecified; R13.10 Dysphagia, unspecified; E11.43 Type 2 diabetes mellitus with diabetic autonomic (poly)neuropathy; K31.84 Gastroparesis
CPT/HCPCS: 36415; 43239; 43450; 71045; 74177; 80048; 80053; 82150; 82270; 82550; 82553; 82607; 82728; 82746; 82948; 83540; 83690; 84466; 84484; 85025; 85045; 85610; 85730; 86850; 86900; 86920; 88305; 88312; 88342; 93005; 99284; J2250; J2353; J7030; J7040; J7042; J7050; P9016; Q9967; U0002

== ENCOUNTER 2019-08-31 21:53 | Inpatient (IN) | payer OTHER ==
[~2019-08-31] VITALS: Ht 157.5 cm; Wt 48.1 kg
[~2019-08-31 21:53] MED LIST: FINASTERIDE5 MG PO; FLOMAX0.4 MG PO; IRON PO; METFORMIN HCL500 MG PO; MULTIVITAMINS1 EAC6 PO; NEXIUM40 MG PO
--- NOTE | 2019-08-31 23:41 | Emergency Department Note ---
History of Present Illnes History of Present Illness Chief Complaint: General Medicine Complaints History of Present Illness This is a 79 year old male WITH C/O LOSS OF APPETITE AND WEIGHT OVER PAST FEW WEEKS, ADMITTED HERE FOR SAME ON AUGUST 18, DURING THAT ADMISSION PT HAD CT SCAN OF ABD/PELVIS AND AN EGD DONE, PT STATES HIS PCP TOLD HIM TO COME TO ER TODAY TO GET A BLOOD TRANSFUSION TO HELP WITH HIS WEIGHT LOSS. PT DENIES N/V/D, DOES REPORT INTERMITTENT BLACK STOOLS, PT DID HAVE OCCULT POSITIVE STOOL ON LAST ADMISSION, . Historian: Patient, Significant Other Arrival Mode: Car Onset (how long ago): week(s) (6) Location: ABD Quality: NO APPETITIE, WEIGHT LOSS Radiation: Reports non-radiation Severity: mild Onset quality: gradual Duration (how long): week(s) (6) Timing of current episode: constant Progression: unchanged Chronicity: chronic Context: Denies recent illness, Denies recent surgery Relieving factors: none Exacerbating factors: none Associated symptoms: Reports denies other symptoms Past Medical/Family History Physician Review I have reviewed the patient's past medical and family history. Any updates have been documented here. Past Medical History Recent Fever: No Clinical Suspicion of Infectio: No New/Unexplained Change in Ment: No Past Medical History: Diabetes Social History Smoking Cessation: Never Smoker Alcohol Use: None Any Illegal Drug Use: No Review of Systems Review of Systems Constitutional: Reports no symptoms EENTM: Reports no symptoms Cardiovascular: Reports no symptoms Respiratory: Reports no symptoms Gastrointestinal: Reports as per HPI Genitourinary: Reports no symptoms Musculoskeletal: Reports no symptoms Integumentary: Reports no symptoms Neurological: Reports no symptoms Psychological: Reports no symptoms Endocrine: Reports no symptoms Hematological/Lymphatic: Reports no symptoms Physical Exam Related Data Allergies: Coded Allergies: No Known Allergies (Unverified , 08/19/19) Triage Vital Signs Vital Signs Date Time Temp Pulse Resp B/P (MAP) Pulse Ox O2 Delivery O2 Flow Rate FiO2 08/31/19 23:28 97.8 73 17 100/63 100 Room Air Vital signs reviewed: Yes Physical Exam CONSTITUTIONAL Constitutional: Present well-developed, Present well-nourished HENT HENT: Present normocephalic, Present atraumatic, Present oropharynx clear/moist, Present nose normal HENT L/R: Present left ext ear normal, Present right ext ear normal EYES Eyes: Reports PERRL, Reports conjunctivae normal NECK Neck: Present ROM normal PULMONARY Pulmonary: Present effort normal, Present breath sounds normal CARDIOVASCULAR Cardiovascular: Present regular rhythm, Present heart sounds normal, Present capillary refill normal, Present normal rate GASTROINTESTINAL Abdominal: Present soft, Present nontender, Present bowel sounds normal GENITOURINARY Genitourinary: Present exam deferred SKIN Skin: Present warm, Present dry MUSCULOSKELETAL Musculoskeletal: Present ROM normal NEUROLOGICAL Neurological: Present alert, Present oriented x 3, Present no gross motor or sensory deficits PSYCHOLOGICAL Psychological: Present mood/affect normal, Present judgement normal Results Laboratory Laboratory Laboratory Tests Test 08/31/19 23:22 White Blood Count 6.66 x10e3/uL (4.8-10.8) Red Blood Count 2.59 x10e6/uL (4.3-5.7) Hemoglobin 7.5 g/dL (14.0-18.0) Hematocrit 23.4 % (38.2-49.6) Mean Corpuscular Volume 90.3 fL (81-99) Mean Corpuscular Hemoglobin 29.0 pg (28-32) Mean Corpuscular Hemoglobin Concent 32.1 g/dL (31-35) Red Cell Distribution Width 16.6 % (11.7-14.4) Platelet Count 309 x10e3/uL (140-360) Neutrophils (%) (Auto) 63.8 % (38.7-80.0) Lymphocytes (%) (Auto) 18.9 % (18.0-39.1) Monocytes (%) (Auto) 14.9 % (4.4-11.3) Eosinophils (%) (Auto) 1.5 % (0.0-6.0) Basophils (%) (Auto) 0.6 % (0.0-1.0) Neutrophils # (Auto) 4.3 (2.1-6.9) Lymphocytes # (Auto) 1.3 (1.0-3.2) Monocytes # (Auto) 1.0 (0.2-0.8) Eosinophils # (Auto) 0.1 (0.0-0.4) Basophils # (Auto) 0.0 (0.0-0.1) Absolute Immature Granulocyte (auto 0.02 x10e3/uL (0-0.1) Sodium Level 134 mmol/L (136-145) Potassium Level 4.2 mmol/L (3.5-5.1) Chloride Level 98 mmol/L (98-107) Carbon Dioxide Level 27 mmol/L (22-29) Anion Gap 13.2 mmol/L (8-16) Blood Urea Nitrogen 33 mg/dL (7-26) Creatinine 0.95 mg/dL (0.72-1.25) Estimat Glomerular Filtration Rate > 60 ML/MIN (60-) BUN/Creatinine Ratio 35 (6-25) Glucose Level 158 mg/dL (74-118) Calcium Level 8.5 mg/dL (8.4-10.2) Total Bilirubin 0.3 mg/dL (0.2-1.2) Aspartate Amino Transf (AST/SGOT) 28 IU/L (5-34) Alanine Aminotransferase (ALT/SGPT) 17 IU/L (0-55) Alkaline Phosphatase 65 IU/L (40-150) Total Protein 5.8 g/dL (6.5-8.1) Albumin 2.8 g/dL (3.5-5.0) Globulin 3.0 g/dL (2.3-3.5) Albumin/Globulin Ratio 0.9 (0.8-2.0) Amylase Level 48 U/L (25-125) Lipase 93 U/L (8-78) Lab results reviewed: Yes Laboratory comments pt has hgb drop of 2 grams in last 2 weeks, Assessment & Plan Medical Decision Making MDM PT WITH WEIGHT LOSS, LOSS OF APPETITE AND OCCULT POSITIVE STOOLS, TOLD HE NEEDED TO COME TO ER BY PCP FOR A BLOOD TRANSFUSION. CBC, CMP, ORDERED TO EVAL FOR ANEMIA, ELECTROLYTE ABNORMALITY, ELEVATED LFT'S pt found to have hgb of 7.[address] vasquez and dr yuridia john, admit pt to inpatient. Reassessment Reassessment time: 01:01 Reassessment pt with no change in symptoms, i went over lab work with patient and informed him of decision to admit him to hospital again for a possible blood transfusion and to have endoscopy done again, Assessment & Plan Final Impression: (1) Anemia (2) Weight loss (3) GI bleed Depart Disposition: ADMITTED Last Vital Signs Date Time Temp Pulse Resp B/P (MAP) Pulse Ox O2 Delivery O2 Flow Rate FiO2 08/31/19 23:28 97.8 73 17 100/63 100 Room Air Home Meds Active Scripts Finasteride (FINASTERIDE) 5 Mg Tablet, 5 MG PO DAILY, #30 TAB 1 Refill Prov:FER HOBSON MD, [facility] 08/21/19 Tamsulosin Hcl* (FLOMAX*) 0.4 Mg Cap, 0.4 MG PO DAILY for 30 Days, #30 CAP 0 Refills Prov:FER HOBSON MD, SHANIKA 08/21/19 Multivitamin With Minerals (MULTIVITAMINS WITH MINERALS) 1 Each Tablet, 1 TAB PO DAILY for 30 Days, 6 Refills Prov:FER HOBSON MD, [place] 08/21/19 Esomeprazole Magnesium (NEXIUM) 40 Mg Capsule.dr, 40 MG PO DAILY for 30 Days, CAP 1 Refill [facility] NEXIUM PER [facility] Prov:FER HOBSON MD, [facility] 08/21/19 Reported Medications [Iron] No Conflict Check, 1 TAB PO TID 08/19/19 Metformin Hcl (METFORMIN HCL) 500 Mg Tablet, 500 MG PO BID, #60 TAB 08/19/19 FIORDALIZA QURESHI MD Aug 31, 2019 23:41
[2019-09-01] VITALS (10 sets, daily range): BP systolic 89–123; BP diastolic 53–66
[2019-09-01 00:02] LABS: BASOPHILS % 0.6 % (0.0-1.0); EOSINOPHILS # (AUTO) 0.1 (0.0-0.4); EOSINOPHILS % 1.5 % (0.0-6.0); HEMATOCRIT 23.4 % (38.2-49.6); HEMOGLOBIN 7.5 g/dL (14.0-18.0); LYMPHOCYTES # (AUTO) 1.3 (1.0-3.2); LYMPHOCYTES % 18.9 % (18.0-39.1); MEAN CORPUSCULAR HGB CONC 32.1 g/dL (31-35); MEAN CORPUSCULAR VOLUME 90.3 fL (81-99); MONOCYTES % 14.9 % (4.4-11.3); NEUTROPHILS # (AUTO) 4.3 (2.1-6.9); NEUTROPHILS % 63.8 % (38.7-80.0); PLATELET COUNT 309 x10e3/uL (140-360); RED BLOOD COUNT 2.59 x10e6/uL (4.3-5.7); RED CELL DISTRIBUTION WIDTH 16.6 % (11.7-14.4)
[2019-09-01 00:13] LABS: ALANINE AMINOTRANSFERASE 17 IU/L (0-55); ALBUMIN 2.8 g/dL (3.5-5.0); ALBUMIN/GLOBULIN RATIO 0.9 (0.8-2.0); ANION GAP 13.2 mmol/L (8-16); BLOOD UREA NITROGEN 33 mg/dL (7-26); BUN/CREATININE RATIO 35 (6-25); CALCIUM 8.5 mg/dL (8.4-10.2); CARBON DIOXIDE 27 mmol/L (22-29); CHLORIDE 98 mmol/L (98-107); CREATININE, SERUM 0.95 mg/dL (0.72-1.25); EST GLOMERULAR FILTRATION RATE > 60 ML/MIN (60-); GLUCOSE 158 mg/dL (74-118); POTASSIUM 4.2 mmol/L (3.5-5.1); SODIUM 134 mmol/L (136-145)
[2019-09-01 00:34] LABS: ALKALINE PHOSPHATASE 65 IU/L (40-150)
[2019-09-01 00:36] LABS: AMYLASE 48 U/L (25-125); LIPASE 93 U/L (8-78)
[2019-09-01] MEDS ORDERED: SODIUM CHLORIDE 0.9% 1000ML 1,000 ML IV SCH (01:15)
[2019-09-01] MEDS ORDERED: METFORMIN HCL500 MG PO (04:25)
[2019-09-01] MEDS ORDERED: FERROUS SULFAT325 MG PO (04:25)
[2019-09-01 07:03] LABS: HEMATOCRIT 22.4 % (38.2-49.6)
[2019-09-01] MEDS: PANTOPRAZOLE 40 MG 10ML VIAL IV SCH ×2 (08:15→16:45)
[2019-09-01] MEDS ORDERED: SODIUM CHLORIDE 0.9% 250ML 250 ML IV ONE (08:30)
[2019-09-01] MEDS ORDERED: ACETAMINOPHEN 325 MG TAB PO ONE (08:30)
[2019-09-01] MEDS ORDERED: FUROSEMIDE INJ 10 MG/ML 2 ML VIAL IV PRN ×2 (08:30→15:45)
[2019-09-01] MEDS ORDERED: DEXTROSE 50% SYRINGE 50 ML IV PRN (08:30)
[2019-09-01] MEDS ORDERED: ACETAMINOPHEN 325 MG TAB PO PRN (08:45)
--- NOTE | 2019-09-01 09:25 | History and Physical ---
PRIMARY CARE PHYSICIAN: Zen Machado MD. DIRECTOR OF RELIGIOUS ACTIVITIES: Milad Tolbert MD. CHIEF COMPLAINT: Progressive weakness, progressive weight loss, severe anemia with melena. HISTORY OF PRESENT ILLNESS: This is an 79-year-old male, recently admitted from August 19, 2019 to August 21, 2019 for anemia. The patient was found to have dysphagia as well. He underwent EGD and biopsy done. 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 The patient also now complains of melena, he is also progressively weak and weight loss as well. The patient's hemoglobin and hematocrit are 7 and 22.4 respectively. The patient is pending for chemotherapy and iron infusion, and also consultation with oncologist. The patient is otherwise clinically stable at this time. He did receive boluses of IV fluid due to hypotensive episode at night in the ER. The patient is otherwise stable now. PAST MEDICAL HISTORY: Recent diagnosis of gastric cancer, mucinous adenocarcinoma invasive after EGD done on last admission. Progressive weight loss. Diabetes type 2, hypertension, and enlarged prostate. PAST SURGICAL HISTORY: EGD done, found invasive gastric carcinoma as mentioned above. SOCIAL HISTORY: The patient does not smoke or use alcohol. No regular drugs. ALLERGIES: NO KNOWN ALLERGIES. HOME MEDICATIONS: He is on: 1. Nexium. 2. Ferrous sulfate. 3. Finasteride. 4. Metformin. 5. Multivitamins. 6. Flomax. PHYSICAL EXAMINATION: VITAL SIGNS: Temperature is 98, blood pressure is 107/61, pulse rate 60, respirations 20. GENERAL: The patient is not in acute distress. He is seen with weight loss. HEENT: Normocephalic and atraumatic. He is anicteric. NECK: Supple grossly. PULMONARY: Clear. CARDIOVASCULAR: Regular rate and rhythm. ABDOMEN: Soft, cachexia. EXTREMITIES: No cyanosis or edema. NEUROLOGIC: No focal deficit. LABORATORY DATA: Sodium 134, potassium 4.2, chloride 98, bicarb 27, BUN 33, creatinine 0.9, glucose 158. WBC 6.6, hemoglobin 7, hematocrit 22, and platelets 304. IMPRESSION: 1. Persistent recurrent anemia, [id number] blood loss anemia secondary to gastric cancer, mucinous invasive adenocarcinoma. 2. Progressive weight loss due to the gastric carcinoma. 3. Anemia, need blood transfusion. 4. Medical debility. 5. Anorexia, dysphagia. 6. Diabetes type 2. 7. Enlarged prostate. PLAN: Blood transfusion 2 units. After that, iron infusion. I doubt that the oral iron works for this patient, who has thickening gastric cancer, adenocarcinoma. PPI for now. The patient may not need a repeated EGD. We will consult Dr. Chris Tyler, oncologist. Repeat the lab work in the morning. Supportive measure. The patient may need appetite stimulant. We will place the patient on Reglan 5 mg before meal when started. We will continue to monitor this patient closely. Again, this patient will need diet and supplementary support once no procedure is planned, either today or tomorrow. MD RACHEL Cantrell/SANTIAGO /[id number] cc: Zen Machado MD
[2019-09-01] MEDS: FINASTERIDE 5 MG TAB PO SCH (11:55)
[2019-09-01] MEDS: INSULIN LISPRO 100 UNIT/1 ML 3ML VIAL SQ SCH ×3 (11:55→20:46)
[2019-09-01 12:09] LABS: HEMATOCRIT 23.3 % (38.2-49.6); HEMOGLOBIN 7.2 g/dL (14.0-18.0)
[2019-09-01] MEDS ORDERED: SODIUM CHLORIDE 0.9% 250ML 250 ML ONE ×2 (12:11→16:59)
--- NOTE | 2019-09-01 12:35 | NUR ---
1st unit of blood started, patient tolerated first 15 minutes well. Will continue to monitor.
--- NOTE | 2019-09-01 14:00 | NUR ---
1st unit of blood is still infusing with no problems. Patient denies needing anything at this time, call light in reach
--- NOTE | 2019-09-01 15:36 | NUR ---
Called Dr. Vasquez to confirm if he wants to give Lasix after this unit due to blood pressure running in the low 90's. Per Dr. Vasquez just give one time dose of lasix after 2nd unit.
[2019-09-01] MEDS ORDERED: IRON SUCROSE 100 MG in SODIUM CHLORIDE 0.9% 100 ML 100 ML IV SCH ×2 (17:00→22:00)
[2019-09-01] MEDS: TAMSULOSIN HCL 0.4 MG CAP PO SCH (18:00)
--- NOTE | 2019-09-01 19:00 | NUR ---
WALKING ROUNDS PERFORMED, RECEIVED PT LAYING SEMI FOWLERS IN BED, AAOX3, RR EVEN AND NON-LABORED, ON ROOM AIR. NO S/SX OF DISTRESS NOTED. PT RECEIVING BLOOD TRANSFUSION TO (R) AC AT 125ML/HR. LEFT PT LAYING SEMI FOWLERS IN BED, BED IN LOW LOCKED POSITION, SIDE RAILS UPX2, CALL LIGHT AND PHONE WITHIN REACH.
[2019-09-01 21:25] LABS: FERRITIN 24.08 ng/mL (21.81-274.66)
[2019-09-02] VITALS (7 sets, daily range): BP systolic 98–121; BP diastolic 56–64
[2019-09-02 00:23] LABS: HEMATOCRIT 33.6 % (38.2-49.6); HEMOGLOBIN 10.8 g/dL (14.0-18.0)
[2019-09-02 00:40] LABS: ANION GAP 12.8 mmol/L (8-16); BLOOD UREA NITROGEN 21 mg/dL (7-26); BUN/CREATININE RATIO 28 (6-25); CARBON DIOXIDE 27 mmol/L (22-29); CHLORIDE 101 mmol/L (98-107); CREATININE, SERUM 0.76 mg/dL (0.72-1.25); EST GLOMERULAR FILTRATION RATE > 60 ML/MIN (60-); GLUCOSE 89 mg/dL (74-118); POTASSIUM 3.8 mmol/L (3.5-5.1); SODIUM 137 mmol/L (136-145)
[2019-09-02 05:17] LABS: BASOPHILS % 0.5 % (0.0-1.0); EOSINOPHILS # (AUTO) 0.1 (0.0-0.4); EOSINOPHILS % 0.8 % (0.0-6.0); HEMATOCRIT 30.4 % (38.2-49.6); HEMOGLOBIN 9.8 g/dL (14.0-18.0); LYMPHOCYTES # (AUTO) 0.8 (1.0-3.2); LYMPHOCYTES % 9.5 % (18.0-39.1); MEAN CORPUSCULAR HEMOGLOBIN 28.3 pg (28-32); MEAN CORPUSCULAR HGB CONC 32.2 g/dL (31-35); MEAN CORPUSCULAR VOLUME 87.9 fL (81-99); MONOCYTES # (AUTO) 0.8 (0.2-0.8); MONOCYTES % 9.9 % (4.4-11.3); NEUTROPHILS # (AUTO) 6.2 (2.1-6.9); NEUTROPHILS % 78.9 % (38.7-80.0); PLATELET COUNT 239 x10e3/uL (140-360); RED BLOOD COUNT 3.46 x10e6/uL (4.3-5.7); RED CELL DISTRIBUTION WIDTH 16.3 % (11.7-14.4)
--- NOTE | 2019-09-02 06:33 | NUR ---
CONSULTATION CALLED TO MD Glnena WATT, LEFT MESSAGE WITH ANSWERING SERVICE, WAITING FOR CALLBACK.
--- NOTE | 2019-09-02 06:38 | NUR ---
SPOKE WITH MD Glenna WATT CONCERNING CONSULTATION. NO NEW ORDERS RECEIVED, WILL SEE PATIENT LATER TODAY.
--- NOTE | 2019-09-02 07:00 | NUR ---
RCD PT AT BED PT IS ALERT AND ORIENTED PT RESTING ON BED IV PATENT BY SALINE FLUSH PT NPO FOR PROCEDURE BED LOW AND LOCKED CALL LIGHT IN REACH
--- NOTE | 2019-09-02 07:10 | NUR ---
PT WENT TO PROCEDURE IN SAFE CONDITION
[2019-09-02] MEDS: INSULIN LISPRO 100 UNIT/1 ML 3ML VIAL SQ SCH ×4 (07:30→21:00)
[2019-09-02] MEDS ORDERED: DEXTROSE 5% 250ML 250 ML IV ONE (07:59)
--- NOTE | 2019-09-02 08:45 | NUR ---
PT BACK AFTER PROCEDURE PT IS ALERT AND ORIENTED VITALS CHECKED PT RESTING ON BED BED LOW AND LOCKED CALL LIGHT IN REACH
[2019-09-02] MEDS: PANTOPRAZOLE 40 MG 10ML VIAL IV SCH ×2 (09:00→17:00)
[2019-09-02] MEDS: MEGESTROL ACETATE 40 MG TAB PO SCH ×2 (09:00→17:00)
[2019-09-02] MEDS: FINASTERIDE 5 MG TAB PO SCH (09:00)
[2019-09-02] MEDS: SENNA-S TABLET PO SCH ×2 (09:00→17:00)
[2019-09-02] MEDS: METOCLOPRAMIDE HCL 10 MG TAB PO SCH ×3 (11:30→22:15)
[2019-09-02] MEDS ORDERED: IRON SUCROSE 100 MG in SODIUM CHLORIDE 0.9% 100 ML 100 ML IV SCH (12:00)
[2019-09-02] MEDS ORDERED: SODIUM CHLORIDE 0.9% 50ML 50 ML ONE (12:14)
[2019-09-02] MEDS ORDERED: IOPAMIDOL 370 MG/ML 200 ML INFUS..BTL INJ ONE (12:15)
[2019-09-02] MEDS ORDERED: SODIUM CHLORIDE 0.9% 250ML 250 ML ONE (12:25)
--- NOTE | 2019-09-02 13:54 | Diagnostic Imaging Report ---
CT of the chest. Comparison: None Clinical History: Gastrocarcinoma rule out metastasis to the lung. Technique: Helical CT scan of the chest was performed from just above the thoracic inlet through the adrenal glands. Intravenous contrast administration was utilized. Coronal and sagittal reconstructions were generated from the raw data. Multiple images were submitted for interpretation. This exam was performed according to our departmental dose-optimization program which includes automated exposure control, adjustment of the mA and/or kV according to patient size Discussion: Lung [place]: There is presence of right apical lung scarring. There is also presence of 5.1 mm nodule in the right upper lobe and the level of the hilum image #47. There is surrounding pulmonary scarring. There is presence of scarring and traction bronchiectasis in the lingular lobe in the perihilar location image #63. There is presence of 2 nodules 4.3 mm and 1.9 mm respectively in the right middle lobe image #72. There is presence of additional scarring and bronchiectasis in the right middle lobe. There is another nodule measuring 6.9 mm in the right middle lobe image #79. This has surrounding scarring and some spiculation. There is presence of an additional focus of bronchiectasis and scarring and associated nodule with spiculation in the lingular lobe image #88. The nodule that measures approximately 12 mm. Most of these are more consistent with inflammation and scarring for example as a result of repeat infection/inflammation/aspiration. These are less suggestive of metastatic foci from an adenocarcinoma. But of course, metastasis cannot be ruled out with this history. Central airways: As above. Otherwise unremarkable Pleural spaces and pleura: Unremarkable Pulmonary stephanie: Normal Mediastinum: Unremarkable Cardiac chambers and pericardium: Unremarkable Systemic great vessels: Minimal calcific atherosclerosis Central pulmonary vessels: Unremarkable Thyroid: Unremarkable Lymph nodes: No thoracic lymphadenopathy. There is suspicion of intra-abdominal lymphadenopathy. There is presence of soft tissue nodularity around the celiac axis along the lesser curvature of the stomach. This could represent direct infiltration and/or lymph nodes. Azygos vein: Unremarkable The esophagus: Dilated with fluid and air. Thoracic duct: Unremarkable. Osseous structures: No lytic metastasis. Degenerative changes. Upper abdomen: Wall thickening of the gastric antrum and pylorus is once again noted that approaches at least 16 mm on each side. This is consistent with the known history of gastric carcinoma. Additionally there is presence of enteric stranding in the greater omentum. There is presence of an approximately 2.7 cm cystic structure in the left renal pelvis. This could represent a parapelvic cyst. Body wall: Cachexia. Breasts: Unremarkable Axilla: Unremarkable Lower neck: Unremarkable. Impression: Pulmonary parenchymal changes primarily scarring, traction bronchiectasis and nodular opacities which look more like infection, inflammation, aspiration related but metastases with this history are not ruled out. Signed by: Darinel Guerra MD on 09/02/2019 1:51 PM
[2019-09-02] MEDS ORDERED: LIDOCAINE HCL 2% LOCAL INJ 5 ML SDV VIAL INJ ONE (13:56)
[2019-09-02] MEDS ORDERED: ETOMIDATE 2 MG/ML 10 ML INJ IV ONE (13:56)
[2019-09-02] MEDS ORDERED: SODIUM CHLORIDE 0.9% 1000 ML BAG ONE (14:54)
--- NOTE | 2019-09-02 16:00 | NUR ---
AC TO FAMILY THEY SAID DR IS GOING TO DO SURGERY THEY NEED MORE EXPLANATION SO PAGED DR Henry DASH
--- NOTE | 2019-09-02 16:30 | NUR ---
DR ROPER RETURNED THE CALL SINCE HE IS COVERING DR Henry DASH HE SAID HE WILL EXPLAIN TO THE FAMILY ON TOMORROW WHILE TAKING ROUNDS
[2019-09-02] MEDS: TAMSULOSIN HCL 0.4 MG CAP PO SCH (17:00)
--- NOTE | 2019-09-02 18:12 | NUR ---
Nutrition Intervention Note RD Recommendation(s) for Physician: -Continue regular diet -Recommend Glucerna with meals for added nutrition The patient meets criteria for unspecified SEVERE protein-calorie malnutrition. Plan of Care: RD following, monitoring for tolerance and adequacy, oral supplement recommendation Nutrition reason for involvement: consult and Nutrition Risk Trigger RD Assessment (09/02/19) Pt is an 79 year old male admitted with anemia, GI bleed, and weight loss. Pt had an EGD with biopsy today per chart which showed a large amount of retained food and the antrum was ulcerated and friable. It is recorded that pt consumed 50-75% of meals today, but prior to admission, pt reports not eating much since August 19. Pt also reports weight loss and he had weighed 125 lbs in May. Pt currently weighs 106 lbs. This would be 15% weight loss in the past 3 months which is considered to be significant weight loss. Pt is currently on an appetite stimulant. Recommend Glucerna with meals for added nutrition. Will continue to monitor. Principal Problems/Diagnoses: anemia, GI bleed, weight loss PMH: Recent diagnosis of gastric cancer, mucinous adenocarcinoma, invasive after EGD done on last admission. Progressive weight loss, Diabetes type 2, hypertension, and enlarged prostate. GI: soft, non-tender round, abdomen Skin: intact Labs: (09/01) Na 137, K 3.8, Cr 0.76, Glu 89, Ca 8.0 Meds: IV iron, reglan, insulin, senokot, megace, protonix, lasix, zofran Ht: 62 inches Wt: 106 lbs BMI: 19.4 kg/m2 IBW: 118 lbs Malnutrition Evaluation (09/02/19) The patient meets criteria for unspecified SEVERE protein-calorie malnutrition. Energy intake: <50% of estimated energy requirements for >5 days Weight loss: >7.5% in 3 months (Acute) Fat loss: unable to evaluate Muscle loss: unable to evaluate Supporting Evidence: Fluid accumulation: no edema per MD note Functional Status: unable to assess Nutrition Prescription (Diet Order):regular Estimated Nutritional Needs: 3913-3017 calories/day (25-35 kcal/kg CBW) 48-72 g protein/day (1-1.5 g pro/kg CBW) Diet Adequacy: Not meeting calorie needs, Not meeting protein needs Tolerance: Tolerating PO Diet Education Needs Assessment: Diet education not indicated; patient on regular diet. Nutrition Care Level: moderate Nutrition Diagnosis: Severe malnutrition related to h/o inadequate intake as evidenced by pt meeting <50% of estimated energy needs for > 5 days and >7.5% weight loss in 3 months. Goal: Patient will meet 75-100% of estimated needs by follow up Progress: N/A Interventions: -General healthful diet, Commercial beverage Monitoring/Evaluation: -Total energy intake, Total protein intake, Liquid supplement, Weight change Signed: Shereen Roa RD, LD
--- NOTE | 2019-09-02 19:26 | NUR ---
PT RESTING ON BED BED SIDE REPORT GIVEN TO ONCOMING NURSE
[2019-09-02] MEDS: MIRTAZAPINE 15 MG TAB PO SCH (22:15)
[2019-09-03] VITALS (7 sets, daily range): BP systolic 94–116; BP diastolic 58–65
[2019-09-03 05:27] LABS: BASOPHILS % 0.4 % (0.0-1.0); EOSINOPHILS % 0.5 % (0.0-6.0); HEMATOCRIT 31.3 % (38.2-49.6); HEMOGLOBIN 9.9 g/dL (14.0-18.0); LYMPHOCYTES # (AUTO) 1.2 (1.0-3.2); MEAN CORPUSCULAR HEMOGLOBIN 28.8 pg (28-32); MEAN CORPUSCULAR HGB CONC 31.6 g/dL (31-35); MONOCYTES # (AUTO) 0.8 (0.2-0.8); MONOCYTES % 10.9 % (4.4-11.3); NEUTROPHILS # (AUTO) 5.2 (2.1-6.9); NEUTROPHILS % 71.8 % (38.7-80.0); PLATELET COUNT 241 x10e3/uL (140-360); RED BLOOD COUNT 3.44 x10e6/uL (4.3-5.7); RED CELL DISTRIBUTION WIDTH 16.3 % (11.7-14.4)
--- NOTE | 2019-09-03 07:00 | NUR ---
RCD PT AT BED PT IS ALERT AND ORIENTED PT RESTING ON BED IV PATENT BY SALINE FLUSH BED LOW AND LOCKED CALL LIGHT IN REACH
[2019-09-03] MEDS: METOCLOPRAMIDE HCL 10 MG TAB PO SCH ×4 (07:30→20:50)
[2019-09-03] MEDS: INSULIN LISPRO 100 UNIT/1 ML 3ML VIAL SQ SCH ×4 (07:30→20:39)
[2019-09-03] MEDS: MEGESTROL ACETATE 40 MG TAB PO SCH ×2 (09:00→16:59)
[2019-09-03] MEDS: PANTOPRAZOLE 40 MG 10ML VIAL IV SCH ×2 (09:00→16:59)
[2019-09-03] MEDS: SENNA-S TABLET PO SCH ×2 (09:00→16:59)
[2019-09-03] MEDS: FINASTERIDE 5 MG TAB PO SCH (09:00)
[2019-09-03] MEDS: IRON SUCROSE 100 MG in SODIUM CHLORIDE 0.9% 100 ML 100 ML IV SCH (12:00)
[2019-09-03] MEDS: TAMSULOSIN HCL 0.4 MG CAP PO SCH (16:59)
--- NOTE | 2019-09-03 18:45 | NUR ---
PT RESTING ON BED BED SIDE REPORT GIVEN TO ONCOMING NURSE
[2019-09-03] MEDS: MIRTAZAPINE 15 MG TAB PO SCH (20:50)
[2019-09-04] VITALS (8 sets, daily range): BP systolic 92–130; BP diastolic 51–74
--- NOTE | 2019-09-04 07:00 | NUR ---
RCD PT AT BED PT IS ALERT AND ORIENTED PT RESTING ON BED IV PATENT BY SALINE FLUSH BED LOW AND LOCKED CALL LIGHT IN REACH
[2019-09-04] MEDS: METOCLOPRAMIDE HCL 10 MG TAB PO SCH ×4 (07:30→22:30)
[2019-09-04] MEDS: INSULIN LISPRO 100 UNIT/1 ML 3ML VIAL SQ SCH ×4 (07:30→23:01)
[2019-09-04] MEDS: PANTOPRAZOLE 40 MG 10ML VIAL IV SCH ×2 (09:00→17:00)
[2019-09-04] MEDS: SENNA-S TABLET PO SCH ×2 (09:00→17:00)
[2019-09-04] MEDS: MEGESTROL ACETATE 40 MG TAB PO SCH ×2 (09:00→17:00)
[2019-09-04] MEDS: FINASTERIDE 5 MG TAB PO SCH (09:00)
[2019-09-04 11:35] LABS: ALANINE AMINOTRANSFERASE 14 IU/L (0-55); ALBUMIN/GLOBULIN RATIO 0.8 (0.8-2.0); ALKALINE PHOSPHATASE 60 IU/L (40-150); ANION GAP 9.2 mmol/L (8-16); BLOOD UREA NITROGEN 17 mg/dL (7-26); BUN/CREATININE RATIO 24 (6-25); CALCIUM 7.6 mg/dL (8.4-10.2); CARBON DIOXIDE 26 mmol/L (22-29); CHLORIDE 106 mmol/L (98-107); EST GLOMERULAR FILTRATION RATE > 60 ML/MIN (60-); GLUCOSE 183 mg/dL (74-118); POTASSIUM 4.2 mmol/L (3.5-5.1); SODIUM 137 mmol/L (136-145)
[2019-09-04] MEDS: IRON SUCROSE 100 MG in SODIUM CHLORIDE 0.9% 100 ML 100 ML IV SCH (12:00)
--- NOTE | 2019-09-04 14:00 | NUR ---
PATIENT GOING FOR SURGERY ON TOMORROW CONSENT SIGNED NPO AFTER MIDNIGHT
[2019-09-04] MEDS: TAMSULOSIN HCL 0.4 MG CAP PO SCH (17:00)
--- NOTE | 2019-09-04 18:00 | NUR ---
PAGED DR AGUILAR TO NOTIFY THE EKG REPORT
--- NOTE | 2019-09-04 18:28 | NUR ---
DR Thao GILLIAM RETURNED THE CALL AND NOTIFY THE EKG REPORT HE SAID ITS OK NO NEW ORDERS
--- NOTE | 2019-09-04 18:46 | NUR ---
PT RESTING ON BED BED SIDE REPORT GIVEN TO ONCOMING NURSE
[2019-09-04] MEDS: MIRTAZAPINE 15 MG TAB PO SCH (22:30)
[2019-09-04] MEDS: CEFOXITIN SOD 1 GM in SODIUM CHLORIDE 0.9% 50ML 50 ML IV SCH (23:00)
[2019-09-05] VITALS (16 sets, daily range): BP systolic 98–124; BP diastolic 52–66
[2019-09-05] MEDS: METOCLOPRAMIDE HCL 10 MG TAB PO SCH (07:30)
[2019-09-05] MEDS: INSULIN LISPRO 100 UNIT/1 ML 3ML VIAL SQ SCH (07:30)
[2019-09-05] MEDS: PANTOPRAZOLE 40 MG 10ML VIAL IV SCH ×2 (09:00→20:21)
[2019-09-05] MEDS: MEGESTROL ACETATE 40 MG TAB PO SCH (09:00)
[2019-09-05] MEDS: IRON SUCROSE 100 MG in SODIUM CHLORIDE 0.9% 100 ML 100 ML IV SCH (12:00)
[2019-09-05] MEDS ORDERED: LIDOCAINE HCL 2% JELLY 5 ML TUBE ONE (13:58)
[2019-09-05] MEDS ORDERED: PROPOFOL IV EMULSION 10 MG/ML 20 ML VIAL ONE (13:58)
[2019-09-05] MEDS ORDERED: NEOSTIGMINE 1 MG/ML 10ML VIAL ONE (13:58)
[2019-09-05] MEDS ORDERED: GLYCOPYRROLATE INJ 0.2 MG/ML VIAL ONE (13:58)
[2019-09-05] MEDS ORDERED: ONDANSETRON HCL INJ 2MG/ML 2ML 2 MG/ML VIAL ONE (13:58)
[2019-09-05] MEDS ORDERED: ETOMIDATE 2 MG/ML 10 ML INJ IV ONE (13:58)
[2019-09-05] MEDS ORDERED: SEVOFLURANE INHAL SOLN 250 ML PEN BTL ONE (13:58)
[2019-09-05] MEDS ORDERED: LIDOCAINE HCL 2% LOCAL INJ 5 ML SDV VIAL INJ ONE (13:58)
[2019-09-05] MEDS ORDERED: ROCURONIUM BROMIDE 10 MG/ML 5ML VIAL IV ONE (13:58)
[2019-09-05] MEDS ORDERED: ACETAMINOPHEN 1000 MG/100 ML IV PRN (14:15)
[2019-09-05] MEDS ORDERED: FENTANYL CITRATE/PF 100MCG/2 ML INJ ONE (14:41)
[2019-09-05] MEDS: HYDROMORPHONE 1MG/1ML INJ IV PRN ×2 (17:00→20:31)
[2019-09-05] MEDS: SODIUM CHLORIDE 0.9% 250ML IRRIG IR SCH ×3 (17:42→22:15)
--- NOTE | 2019-09-05 18:35 | Operative Report ---
DATE OF PROCEDURE: 09/05/2019 SURGEON: Isaias Garza MD PREOPERATIVE DIAGNOSIS: Gastric cancer. POSTOPERATIVE DIAGNOSIS: Gastric cancer. OPERATIONS PERFORMED: Exploratory laparotomy, near-total gastrectomy with Juan-en-Y reconstruction. ASSISTANTS: 1. Carlos Garza MD. 2. SOHAIL Pugh. ANESTHESIA: General. COMPLICATIONS: None. ESTIMATED BLOOD LOSS: 150 mL. DESCRIPTION OF PROCEDURE: With the patient lying in bed in the supine position under good general endotracheal anesthesia, the abdomen was prepped with Betadine solution and draped in the usual manner. An upper midline incision was made, it was carried down through the subcutaneous tissue and through the midline fascia. The peritoneum was opened and the abdomen was entered. Upon entering the abdominal cavity, immediately a distended stomach, full of some food contents was encountered. There was also a large tumor in the antral part of the stomach, that was hard and it extended all the way up to about residential up the stomach. There was some obvious adenopathy in the left gastric distribution and there was some tumor, that appeared to extend through the perigastric subcutaneous tissue. The liver was clean of any metastatic disease. The rest of the abdominal cavity showed some very minimal nodularity in the pelvic brim. Otherwise, there was a small amount of ascites present. All of the small bowel appeared to be within normal limits. The omentum was also clean of any metastatic disease. We decided to go ahead and proceed with a gastrectomy as the patient was impending obstruction and had having able to the eat for a the time, although this is more of a palliative operation. At this point, omentum was then detached from the transverse colon. The lesser sac was entered and the stomach was mobilized superiorly. The short gastrics were then taken down using the EnSeal device. The stomach was thus freed up all the way on the lesser curvature side. At this point, the lesser curvature was then freed up, the left gastric was identified and ligated, there was some adenopathy in this area; once this was done, ligated with 0 silk. The stomach was then divided with the stapler, leaving roughly remnant of may be about 100 mL and the stomach was thus divided. The stomach was then from the pancreas. The duodenum was then circumferentially dissected distal to the tumor and the duodenum was divided with a TA-60 stapler and the specimen was sent for pathological examination. After this was done, the whole area was irrigated. Hemostasis was ascertained. The duodenal stump was then oversewn further with 2-0 silk suture. Similarly, the staple line of the stomach was oversewn with 2-0 silk suture. The ligament of Treitz was then identified and just distal to the ligament of Treitz. The small bowel was divided with an application of IMAN-75 stapler. The efferent loop was then brought up to the upper abdomen in an antecolic fashion without any tension whatsoever and the gastrojejunal anastomosis was then performed with another application of IMAN-75 stapler. The remaining opening was closed with a TA-60 stapler and the anastomosis was reinforced with 2-0 silk. 60 cm distal to the gastrojejunal anastomosis is jejunojejunal anastomosis of the Juan-en-Y was then performed [id number] with another application of the TA-60 stapler with the remaining opening being closed with a TA-60 stapler. Gloves and instruments were then changed. The last anastomosis was reinforced with 3-0 silk. The abdomen was then copiously irrigated and perfect hemostasis was ascertained. The NG tube was then left in place in the gastric pouch, and the abdomen was then closed in layers. The peritoneum was closed with a running suture of #1 Vicryl. The midline fascia was closed with a running suture of #1 Vicryl and the skin was closed with clips. A dressing was applied. The sponge, lap, and needle count were correct. The patient tolerated the procedure well and returned to the recovery room in stable condition. MD CATHI Temple/SANTIAGO /[id number]
[2019-09-05] MEDS: SODIUM CHLORIDE 0.9% 1000ML 1,000 ML IV SCH (20:21)
[2019-09-06] VITALS (17 sets, daily range): BP systolic 110–134; BP diastolic 57–71
[2019-09-06] MEDS: HYDROMORPHONE 1MG/1ML INJ IV PRN ×4 (01:19→18:00)
[2019-09-06] MEDS: SODIUM CHLORIDE 0.9% 250ML IRRIG IR SCH ×6 (03:29→22:15)
[2019-09-06] MEDS: CEFOXITIN SOD 1 GM in SODIUM CHLORIDE 0.9% 50ML 50 ML IV SCH (05:00)
[2019-09-06] MEDS: SODIUM CHLORIDE 0.9% 1000ML 1,000 ML IV SCH (07:04)
[2019-09-06 08:23] LABS: BASOPHILS % 0.2 % (0.0-1.0); HEMATOCRIT 30.3 % (38.2-49.6); HEMOGLOBIN 8.8 g/dL (14.0-18.0); LYMPHOCYTES # (AUTO) 0.3 (1.0-3.2); MEAN CORPUSCULAR HEMOGLOBIN 29.3 pg (28-32); MONOCYTES # (AUTO) 0.7 (0.2-0.8); MONOCYTES % 6.4 % (4.4-11.3); NEUTROPHILS % 89.9 % (38.7-80.0); PLATELET COUNT 204 x10e3/uL (140-360); RED CELL DISTRIBUTION WIDTH 16.8 % (11.7-14.4)
[2019-09-06 08:46] LABS: ANION GAP 13.3 mmol/L (8-16); BLOOD UREA NITROGEN 17 mg/dL (7-26); BUN/CREATININE RATIO 20 (6-25); CALCIUM 7.2 mg/dL (8.4-10.2); CARBON DIOXIDE 19 mmol/L (22-29); CHLORIDE 113 mmol/L (98-107); CREATININE, SERUM 0.86 mg/dL (0.72-1.25); EST GLOMERULAR FILTRATION RATE > 60 ML/MIN (60-); GLUCOSE 223 mg/dL (74-118); POTASSIUM 5.3 mmol/L (3.5-5.1); SODIUM 140 mmol/L (136-145)
[2019-09-06] MEDS: PANTOPRAZOLE 40 MG 10ML VIAL IV SCH ×2 (10:54→18:00)
[2019-09-06] MEDS: IRON SUCROSE 100 MG in SODIUM CHLORIDE 0.9% 100 ML 100 ML IV SCH (12:00)
--- NOTE | 2019-09-06 18:01 | NUR ---
received transfer of care report from [employer] [facility]. awaiting pt's arrival to room 115. Addendum: 09/06/19 at 1838 by John Uribe RN states Dr. Garza said to hold pt's dose of IV Venofer.
--- NOTE | 2019-09-06 18:31 | NUR ---
pt arrived to room 115. pt awake, alert, no signs of distress. informed by RN she just did fingerstick blood glucose check and his blood sugar was 169. states she also just administered pt's PM dose of Protonix and gave pt dose of Dilaudid.
--- NOTE | 2019-09-06 19:11 | NUR ---
RECEIVED REPORT FROM PREVIOUS NURSE. CALL LIGHT WITHIN REACH. PATIENT IN BED. ROUNDING PERFORMED
[2019-09-07] VITALS: BP 108/60
[2019-09-07] MEDS: HYDROMORPHONE 1MG/1ML INJ IV PRN ×2 (00:49→12:37)
[2019-09-07] MEDS: ONDANSETRON HCL INJ 2MG/ML 2ML 2 MG/ML VIAL IV PRN ×2 (00:49→12:37)
[2019-09-07] MEDS: SODIUM CHLORIDE 0.9% 250ML IRRIG IR SCH ×5 (02:05→17:14)
[2019-09-07 04:00] VITALS: BP 133/68
[2019-09-07] MEDS: SODIUM CHLORIDE 0.9% 1000ML 1,000 ML IV SCH (04:56)
[2019-09-07 05:47] LABS: BASOPHILS % 0.2 % (0.0-1.0); EOSINOPHILS % 0.1 % (0.0-6.0); HEMATOCRIT 28.1 % (38.2-49.6); HEMOGLOBIN 8.6 g/dL (14.0-18.0); LYMPHOCYTES # (AUTO) 0.4 (1.0-3.2); LYMPHOCYTES % 2.7 % (18.0-39.1); MEAN CORPUSCULAR HEMOGLOBIN 29.1 pg (28-32); MEAN CORPUSCULAR HGB CONC 30.6 g/dL (31-35); MEAN CORPUSCULAR VOLUME 94.9 fL (81-99); MONOCYTES # (AUTO) 1.2 (0.2-0.8); MONOCYTES % 7.9 % (4.4-11.3); NEUTROPHILS # (AUTO) 13.1 (2.1-6.9); NEUTROPHILS % 88.6 % (38.7-80.0); PLATELET COUNT 226 x10e3/uL (140-360); RED BLOOD COUNT 2.96 x10e6/uL (4.3-5.7); RED CELL DISTRIBUTION WIDTH 16.6 % (11.7-14.4)
--- NOTE | 2019-09-07 07:20 | NUR ---
GAVE BEDSIDE SHIFT REPORT TO ONCOMING NURSE. CALL LIGHT WITHIN REACH. PATIENT IN BED. HOURLY ROUNDING PERFORMED.
[2019-09-07 07:32] LABS: ANION GAP 7.9 mmol/L (8-16); BLOOD UREA NITROGEN 15 mg/dL (7-26); BUN/CREATININE RATIO 26 (6-25); CALCIUM 7.3 mg/dL (8.4-10.2); CARBON DIOXIDE 21 mmol/L (22-29); CHLORIDE 113 mmol/L (98-107); CREATININE, SERUM 0.58 mg/dL (0.72-1.25); EST GLOMERULAR FILTRATION RATE > 60 ML/MIN (60-); GLUCOSE 109 mg/dL (74-118); SODIUM 138 mmol/L (136-145)
[2019-09-07 07:35] LABS: POTASSIUM 3.9 mmol/L (3.5-5.1)
[2019-09-07 08:47] VITALS: BP 125/64
[2019-09-07] MEDS: DEXTROSE 5%/0.9% SOD CHL 1,000 ML IV SCH ×2 (09:24→18:38)
[2019-09-07] MEDS: PANTOPRAZOLE 40 MG 10ML VIAL IV SCH (09:27)
--- NOTE | 2019-09-07 09:48 | NUR ---
OCONNELL DISCONTINUED BY RN PER MD ORDERS, TIP INTACT. PT TOLERATED WELL.
--- NOTE | 2019-09-07 09:56 | NUR ---
DR. LAW WATT AT BEDSIDE, STATES WE CAN REMOVE PT'S NG TUBE.
[2019-09-07] MEDS ORDERED: BISACODYL 10 MG SUPP PR ONE (11:00)
[2019-09-07 12:14] VITALS: BP 136/70
--- NOTE | 2019-09-07 14:40 | NUR ---
Nutrition Intervention Note RD Recommendation(s) for Physician: -Recommend advancing to GI soft diet when medically appropriate -Recommend Glucerna with meals for added nutrition when diet is advanced -If diet is unable to be advanced for > 5 days of being NPO, consider alternative means of nutrition The patient meets criteria for unspecified SEVERE protein-calorie malnutrition. Plan of Care: RD following, monitoring for tolerance and adequacy Nutrition reason for involvement: follow up RD Assessment 09/06: Follow up. Pt had an exploratory laparotomy with subtotal gastrectomy on 09/04 per chart. Pt is currently NPO. It is recorded that pt consumed 25-100% of meals from 09/02-09/03 prior to surgery. Recommend advancing diet when medically appropriate. Will continue to monitor. (09/02/19) Pt is an 79 year old male admitted with anemia, GI bleed, and weight loss. Pt had an EGD with biopsy today per chart which showed a large amount of retained food and the antrum was ulcerated and friable. It is recorded that pt consumed 50-75% of meals today, but prior to admission, pt reports not eating much since August 19. Pt also reports weight loss and he had weighed 125 lbs in May. Pt currently weighs 106 lbs. This would be 15% weight loss in the past 3 months which is considered to be significant weight loss. Pt is currently on an appetite stimulant. Recommend Glucerna with meals for added nutrition. Will continue to monitor. Principal Problems/Diagnoses: anemia, GI bleed, weight loss PMH: Recent diagnosis of gastric cancer, mucinous adenocarcinoma, invasive after EGD done on last admission. Progressive weight loss, Diabetes type 2, hypertension, and enlarged prostate. GI: soft, non-tender round, abdomen, last recorded BM 09/03 Skin: intact Labs: 09/06: Na 138, Cr 0.58, BUN 15, Glu 109, Ca 7.3 (09/01) Na 137, K 3.8, Cr 0.76, Glu 89, Ca 8.0 Meds: zofran, protonix, NaCl Ht: 62 inches Wt: 106 lbs BMI: 19.4 kg/m2 IBW: 118 lbs Malnutrition Evaluation (09/02/19) The patient meets criteria for unspecified SEVERE protein-calorie malnutrition. Energy intake: <50% of estimated energy requirements for >5 days Weight loss: >7.5% in 3 months (Acute) Fat loss: unable to evaluate Muscle loss: unable to evaluate Supporting Evidence: Fluid accumulation: no edema per MD note Functional Status: unable to assess Nutrition Prescription (Diet Order): NPO Estimated Nutritional Needs: 9475-7619 calories/day (25-35 kcal/kg CBW) 48-72 g protein/day (1-1.5 g pro/kg CBW) Diet Adequacy: Pt is NPO Tolerance: pt is NPO Diet Education Needs Assessment: Diet education not indicated Nutrition Care Level: moderate Nutrition Diagnosis: Severe malnutrition related to h/o inadequate intake as evidenced by pt meeting <50% of estimated energy needs for > 5 days and >7.5% weight loss in 3 months. Goal: Patient will meet 75-100% of estimated needs by follow up Progress: goal not met, pt is NPO Interventions: -fiber-modified diet, Commercial beverage Monitoring/Evaluation: -Total energy intake, Total protein intake, Liquid supplement, Weight change Signed: Shereen Roa RD, LD
[2019-09-07 20:00] VITALS: BP 128/56
[2019-09-07 21:33] VITALS: BP 128/56
[2019-09-08] VITALS (8 sets, daily range): BP systolic 114–135; BP diastolic 55–67
[2019-09-08] MEDS: ONDANSETRON HCL INJ 2MG/ML 2ML 2 MG/ML VIAL IV PRN (04:57)
[2019-09-08] MEDS: HYDROMORPHONE 1MG/1ML INJ IV PRN (04:57)
[2019-09-08] MEDS: DEXTROSE 5%/0.9% SOD CHL 1,000 ML IV SCH ×3 (04:57→23:49)
[2019-09-08] MEDS: PANTOPRAZOLE 40 MG 10ML VIAL IV SCH (04:57)
[2019-09-08 05:59] LABS: BASOPHILS % 0.3 % (0.0-1.0); HEMATOCRIT 21.9 % (38.2-49.6); HEMOGLOBIN 7.1 g/dL (14.0-18.0); LYMPHOCYTES # (AUTO) 0.3 (1.0-3.2); LYMPHOCYTES % 3.8 % (18.0-39.1); MEAN CORPUSCULAR HEMOGLOBIN 31.1 pg (28-32); MEAN CORPUSCULAR HGB CONC 32.4 g/dL (31-35); MEAN CORPUSCULAR VOLUME 96.1 fL (81-99); MONOCYTES # (AUTO) 0.4 (0.2-0.8); MONOCYTES % 5.3 % (4.4-11.3); NEUTROPHILS # (AUTO) 6.9 (2.1-6.9); NEUTROPHILS % 90.1 % (38.7-80.0); PLATELET COUNT 205 x10e3/uL (140-360); RED BLOOD COUNT 2.28 x10e6/uL (4.3-5.7); RED CELL DISTRIBUTION WIDTH 16.5 % (11.7-14.4)
[2019-09-08 06:46] LABS: ANION GAP 7.3 mmol/L (8-16); BLOOD UREA NITROGEN 13 mg/dL (7-26); BUN/CREATININE RATIO 21 (6-25); CARBON DIOXIDE 23 mmol/L (22-29); CHLORIDE 112 mmol/L (98-107); CREATININE, SERUM 0.62 mg/dL (0.72-1.25); EST GLOMERULAR FILTRATION RATE > 60 ML/MIN (60-); GLUCOSE 164 mg/dL (74-118); POTASSIUM 3.3 mmol/L (3.5-5.1); SODIUM 139 mmol/L (136-145)
[2019-09-08] MEDS ORDERED: SODIUM CHLORIDE 0.9% 250ML 250 ML ONE (09:12)
--- NOTE | 2019-09-08 09:25 | NUR ---
1st unit of blood started transfusing. will monitor closely for reaction.
[2019-09-08] MEDS ORDERED: GUAIFENESIN/CODEINE 10 ML CUP PO PRN (09:30)
[2019-09-08] MEDS ORDERED: FUROSEMIDE INJ 10 MG/ML 4 ML VIAL IV SCH (10:00)
[2019-09-08] MEDS: BENZONATATE 100 MG CAP PO SCH ×3 (10:00→20:38)
--- NOTE | 2019-09-08 13:16 | NUR ---
1st unit prbc complete with no reaction. vitals stable with no distress. lasix to be given.
[2019-09-08] MEDS ORDERED: FUROSEMIDE INJ 10 MG/ML 4 ML VIAL ONE (13:24)
[2019-09-08] MEDS ORDERED: DEXTROSE 50% SYRINGE 50 ML IV PRN (16:30)
[2019-09-08] MEDS: INSULIN LISPRO 100 UNIT/1 ML 3ML VIAL SQ SCH ×2 (17:59→20:34)
--- NOTE | 2019-09-08 20:10 | NUR ---
BED ON LOWEST POSITION. BED ALARM ON. SIDE RAILS UP.
[2019-09-09] VITALS (7 sets, daily range): BP systolic 102–123; BP diastolic 47–78
[2019-09-09] MEDS: PANTOPRAZOLE 40 MG 10ML VIAL IV SCH (05:19)
[2019-09-09 05:23] LABS: BASOPHILS % 0.1 % (0.0-1.0); HEMATOCRIT 29.7 % (38.2-49.6); HEMOGLOBIN 9.7 g/dL (14.0-18.0); LYMPHOCYTES # (AUTO) 0.2 (1.0-3.2); LYMPHOCYTES % 3.3 % (18.0-39.1); MEAN CORPUSCULAR HEMOGLOBIN 28.3 pg (28-32); MEAN CORPUSCULAR HGB CONC 32.7 g/dL (31-35); MEAN CORPUSCULAR VOLUME 86.6 fL (81-99); MONOCYTES # (AUTO) 0.2 (0.2-0.8); NEUTROPHILS # (AUTO) 6.5 (2.1-6.9); NEUTROPHILS % 93.3 % (38.7-80.0); PLATELET COUNT 157 x10e3/uL (140-360); RED BLOOD COUNT 3.43 x10e6/uL (4.3-5.7); RED CELL DISTRIBUTION WIDTH 16.6 % (11.7-14.4)
[2019-09-09 05:42] LABS: ANION GAP 8.4 mmol/L (8-16); BLOOD UREA NITROGEN 14 mg/dL (7-26); BUN/CREATININE RATIO 22 (6-25); CARBON DIOXIDE 23 mmol/L (22-29); CHLORIDE 111 mmol/L (98-107); CREATININE, SERUM 0.64 mg/dL (0.72-1.25); EST GLOMERULAR FILTRATION RATE > 60 ML/MIN (60-); GLUCOSE 103 mg/dL (74-118); SODIUM 140 mmol/L (136-145)
[2019-09-09 05:47] LABS: POTASSIUM 2.4 mmol/L (3.5-5.1)
[2019-09-09] MEDS ORDERED: POTASSIUM CHLORIDE 20MEQ/100ML 100 ML IV ONE ×2 (07:00→09:00)
[2019-09-09] MEDS: INSULIN LISPRO 100 UNIT/1 ML 3ML VIAL SQ SCH ×4 (07:30→21:28)
[2019-09-09 08:44] LABS: BAND NEUTROPHILS % (MANUAL) 13 %; LYMPHOCYTES % (MANUAL) 5 % (19-48); MONOCYTES % (MANUAL) 2 % (3.4-9.0); MYELOCYTES % (MANUAL) 2 % (0-0); NEUTROPHILS % (MANUAL) 78 % (40-74)
[2019-09-09 08:45] LABS: ANISOCYTOSIS SLIGHT; PLATELET ESTIMATE ADEQUATE; PLATELET MORPHOLOGY COMMENT NORMAL; RBC MORPHOLOGY COMMENT NORMAL
[2019-09-09] MEDS: CYANOCOBALAMIN INJ 1,000 MCG/ML VIAL IM SCH (09:00)
[2019-09-09] MEDS: BENZONATATE 100 MG CAP PO SCH ×3 (09:00→21:14)
[2019-09-09] MEDS: IRON SUCROSE 100 MG in SODIUM CHLORIDE 0.9% 100 ML 100 ML IV SCH (11:32)
[2019-09-09] MEDS: D5NS/KCL 20MEQ 1,000 ML IV SCH (11:32)
--- NOTE | 2019-09-09 19:04 | NUR ---
WALKING ROUNDS PERFORMED, RECEIVED PT LAYING SEMI FOWLERS IN BED, AAOX3, RR EVEN AND NON-LABORED, ON ROOM AIR. NO S/SX OF DISTRESS NOTED. LEFT PT LAYING SEMI FOWLERS IN BED, BED IN LOW LOCKED POSITION, SIDE RAILS UPX2, CALL LIGHT AND PHONE WITHIN REACH.
[2019-09-10] VITALS (8 sets, daily range): BP systolic 109–138; BP diastolic 57–91
[2019-09-10 05:44] LABS: BASOPHILS # (AUTO) 0.1 (0.0-0.1); BASOPHILS % 1.2 % (0.0-1.0); HEMATOCRIT 32.2 % (38.2-49.6); HEMOGLOBIN 10.5 g/dL (14.0-18.0); LYMPHOCYTES # (AUTO) 0.3 (1.0-3.2); LYMPHOCYTES % 4.4 % (18.0-39.1); MEAN CORPUSCULAR HEMOGLOBIN 28.9 pg (28-32); MEAN CORPUSCULAR HGB CONC 32.6 g/dL (31-35); MEAN CORPUSCULAR VOLUME 88.7 fL (81-99); MONOCYTES # (AUTO) 0.1 (0.2-0.8); MONOCYTES % 2.3 % (4.4-11.3); NEUTROPHILS # (AUTO) 5.2 (2.1-6.9); NEUTROPHILS % 91.7 % (38.7-80.0); PLATELET COUNT 145 x10e3/uL (140-360); RED BLOOD COUNT 3.63 x10e6/uL (4.3-5.7); RED CELL DISTRIBUTION WIDTH 16.8 % (11.7-14.4)
[2019-09-10 05:59] LABS: ANION GAP 9.8 mmol/L (8-16); BLOOD UREA NITROGEN 13 mg/dL (7-26); BUN/CREATININE RATIO 22 (6-25); CALCIUM 7.3 mg/dL (8.4-10.2); CARBON DIOXIDE 23 mmol/L (22-29); CHLORIDE 113 mmol/L (98-107); CREATININE, SERUM 0.58 mg/dL (0.72-1.25); EST GLOMERULAR FILTRATION RATE > 60 ML/MIN (60-); GLUCOSE 71 mg/dL (74-118); SODIUM 143 mmol/L (136-145)
[2019-09-10 06:05] LABS: POTASSIUM 2.8 mmol/L (3.5-5.1)
[2019-09-10] MEDS: PANTOPRAZOLE 40 MG 10ML VIAL IV SCH ×2 (06:06→21:44)
[2019-09-10] MEDS: D5NS/KCL 20MEQ 1,000 ML IV SCH (06:06)
[2019-09-10 06:25] LABS: MAGNESIUM 1.8 MG/DL (1.3-2.1); PHOSPHORUS 1.4 MG/DL (2.3-4.7)
[2019-09-10] MEDS ORDERED: POTASSIUM CHLORIDE 20MEQ/100ML 200 ML IV ONE (06:30)
[2019-09-10] MEDS: INSULIN LISPRO 100 UNIT/1 ML 3ML VIAL SQ SCH ×4 (07:30→21:45)
--- NOTE | 2019-09-10 08:55 | NUR ---
pt o2 sat 89-91 on ra. pt has no sob or dostress. o2 3lnc placed. pt o2 sat increase to 96. dr vasquez called to notify of change
[2019-09-10] MEDS: CYANOCOBALAMIN INJ 1,000 MCG/ML VIAL IM SCH (09:21)
[2019-09-10] MEDS: BENZONATATE 100 MG CAP PO SCH ×3 (09:21→21:44)
[2019-09-10 09:26] LABS: BURR CELLS MODERATE
[2019-09-10 09:30] LABS: EOSINOPHILS % (MANUAL) 1 % (0-7); LYMPHOCYTES % (MANUAL) 5 % (19-48); MONOCYTES % (MANUAL) 4 % (3.4-9.0)
[2019-09-10] MEDS: IRON SUCROSE 100 MG in SODIUM CHLORIDE 0.9% 100 ML 100 ML IV SCH (09:30)
[2019-09-10 09:32] LABS: BAND NEUTROPHILS % (MANUAL) 15 %; NEUTROPHILS % (MANUAL) 75 % (40-74); PLATELET ESTIMATE ADEQUATE; PLATELET MORPHOLOGY COMMENT NORMAL
[2019-09-10 09:33] LABS: RBC MORPHOLOGY COMMENT ABNORMAL
[2019-09-10] MEDS ORDERED: LACTATED RINGER'S 1,000 ML ONE (13:08)
[2019-09-10] MEDS ORDERED: MAGNESIUM SULFATE 2GM/50ML IV ONE (13:15)
[2019-09-10] MEDS ORDERED: DEXTROSE 5%/0.45% SOD CHL 1,000 ML IV SCH (13:15)
[2019-09-10] MEDS ORDERED: POTASSIUM PHOSPHATE 20 MM in SODIUM CHLORIDE 0.9% 250ML 250 ML IV ONE (14:00)
[2019-09-10] MEDS ORDERED: MAGNESIUM SULFATE 2GM/50ML 50 ML IV ONE (14:00)
--- NOTE | 2019-09-10 14:10 | NUR ---
pt has watery stools, incont, pt unable to make it to restroom
[2019-09-10] MEDS ORDERED: MIDAZOLAM HCL 2 MG/2 ML VIAL ONE (14:55)
[2019-09-10] MEDS ORDERED: SUCCINYLCHOLINE CHLORIDE 20 MG/ML 10ML VIAL ONE (14:55)
[2019-09-10] MEDS ORDERED: NALOXONE HCL INJ 0.4 MG/ML AMP ONE (14:55)
--- NOTE | 2019-09-10 17:50 | NUR ---
dr shaffer to see pt, dr whaley update on pt condition, loose stools and 3lnc placement
--- NOTE | 2019-09-10 18:00 | NUR ---
rounded with dr shaffer, pt iv site puffy. pt states no pain. dr states he would iv moved.attempted to pt right ac, unsuccessful. notified charge nurse
--- NOTE | 2019-09-10 19:25 | NUR ---
RECEIVED REPORT FROM PREVIOUS NURSE. PATIENT IN BED. PATIENT COMPLAINING OF ABDOMINAL PAIN. CALL LIGHT WITHIN REACH. ROUNDING PERFORMED.
[2019-09-10] MEDS: ONDANSETRON HCL INJ 2MG/ML 2ML 2 MG/ML VIAL IV PRN (19:56)
[2019-09-10] MEDS: HYDROMORPHONE 1MG/1ML INJ IV PRN (19:57)
[2019-09-10] MEDS ORDERED: DIPHENOXYLATE/ATROPINE TAB PO ONE (21:45)
--- NOTE | 2019-09-10 22:10 | NUR ---
DR. Laverne CLEVELAND CALLED BECAUSE PATIENT HAS ABNORMAL ABDOMINAL X-RAY. DR. CLEVELAND ORDERED STAT CT ABDOMEN/PELVIS WITH CONTRAST WITH CUTS FROM MID CHEST DOWN. DR. Laverne CLEVELAND SAID CONTACT DR. Henry WATT AND DR. HIDALGO ABOUT THE RESULTS
--- NOTE | 2019-09-10 22:10 | Diagnostic Imaging Report ---
Examination: Single AP view of the chest. COMPARISON: CT chest 09/02/2019 INDICATION: Shortness of breath, cough, history of abdominal surgery 09/04 IMPRESSION: 1. Lines and Tubes: None 2. Lungs are well-inflated. Opacification of the left hemithorax, which may reflect pneumonia or layering effusion with atelectasis. Left lung is grossly clear. 3. Cardiomediastinal silhouette is normal. Pulmonary vasculature is normal. 4. No acute bony abnormalities. 5. Free air is noted under the hemidiaphragms, which is greater than expected for a patient with history of abdominal surgery 5 days ago. Multiple mildly dilated loops of air-filled small bowel are noted in the left abdomen. Recommend CT abdomen and pelvis for further evaluation. 6. Findings discussed with Fabi, the patient's nurse as well as Dr. Tolbert September 10, 2019 at 2205 hours Signed by: Dr. Chacho Mcfadden M.D. on 09/10/2019 10:06 PM
--- NOTE | 2019-09-10 22:13 | NUR ---
CALLED DR. HIDALGO AND HE SAID HE WILL PUT ORDERS IN FOR THE PATIENT.
--- NOTE | 2019-09-10 22:43 | NUR ---
CALLED DR. HIDALGO BECAUSE WE BEEN TRYING TO GET THE IV FLUIDS HE ORDERED FOR 1315. PHARMACY IS NOT AVAILABLE TO BRING THE MEDICATION AND [employer] WAS NOTIFIED. DR. HIDALGO SAID THE PATIENT SHOULD HAVE RECEIVED THIS EARLIER AND NEEDS THE MEDICATION BUT GIVE THE MEDICATION WE HAVE WITH POTASSIUM WHICH IS D5 20 KCL
--- NOTE | 2019-09-10 22:50 | NUR ---
CALLED AND TALKED TO DR. Henry WATT ABOUT THE PATIENT'S CHEST X-RAY RESULTS. DR. Henry WATT SAID TO MAKE THE PATIENT NPO, START ROCEPHIN 1 G NOW AND DAILY, AND CLINDAMYCIN 900 MG IV Q8H. MENTIONED TO DR. Henry WATT THAT STAT CT ABDOMEN/PELVIS WAS ORDERED AND DR. Laverne CLEVELAND AND DR. HIDALGO WAS NOTIFIED OF THE RESULTS.
[2019-09-10] MEDS ORDERED: D5NS/KCL 20MEQ 1,000 ML IV SCH (23:00)
[2019-09-10] MEDS ORDERED: CEFTRIAXONE SOD 1 GM/NS 50 ML 50 ML IV ONE (23:00)
[2019-09-10] MEDS ORDERED: DIATRIZOATE MEGL/DIATRIZOA SOD 30 ML BTL PO ONE (23:23)
--- NOTE | 2019-09-10 23:50 | NUR ---
PATIENT LEFT VIA STRETCHER TO CT. PATIENT IS A&OX3.
[2019-09-11] VITALS (8 sets, daily range): BP systolic 53–120; BP diastolic 37–70
[2019-09-11] MEDS ORDERED: D5NS/KCL 20MEQ 1,000 ML IV SCH
[2019-09-11] MEDS ORDERED: SODIUM CHLORIDE 0.9% 1000ML 2,000 ML ONE (01:56)
[2019-09-11] MEDS ORDERED: NOREPINEPHRINE INJ 4MG/4ML 8 MG in DEXTROSE 5% 250ML 250 ML IV PRN (02:00)
[2019-09-11 02:15] LABS: MAGNESIUM 1.7 MG/DL (1.3-2.1); PHOSPHORUS 2.5 MG/DL (2.3-4.7)
[2019-09-11 02:17] LABS: ANION GAP 12.8 mmol/L (8-16); BLOOD UREA NITROGEN 19 mg/dL (7-26); BUN/CREATININE RATIO 25 (6-25); CALCIUM 7.1 mg/dL (8.4-10.2); CARBON DIOXIDE 17 mmol/L (22-29); CHLORIDE 114 mmol/L (98-107); CREATININE, SERUM 0.75 mg/dL (0.72-1.25); EST GLOMERULAR FILTRATION RATE > 60 ML/MIN (60-); GLUCOSE 93 mg/dL (74-118); SODIUM 141 mmol/L (136-145)
[2019-09-11 02:20] LABS: ABG HCO3 14 mmol/L (22-26); ABG PCO2 39 mmHg (35-45); ABG PH 7.15 (7.35-7.45); ABG PO2 63 mmHg (80-105)
[2019-09-11 02:29] LABS: POTASSIUM 2.8 mmol/L (3.5-5.1)
[2019-09-11] MEDS ORDERED: VANCOMYCIN 1GM/NS 250 ML 250 ML IV STA (02:34)
[2019-09-11] MEDS ORDERED: SODIUM BICARBONATE 8.4% SYRING 100 ML ONE (02:38)
[2019-09-11 02:41] LABS: HEMATOCRIT 30.3 % (38.2-49.6); HEMOGLOBIN 9.3 g/dL (14.0-18.0); LYMPHOCYTES # (AUTO) 0.3 (1.0-3.2); MEAN CORPUSCULAR HEMOGLOBIN 28.3 pg (28-32); MEAN CORPUSCULAR HGB CONC 30.7 g/dL (31-35); MEAN CORPUSCULAR VOLUME 92.1 fL (81-99); MONOCYTES % 1.2 % (4.4-11.3); NEUTROPHILS # (AUTO) 0.5 (2.1-6.9); NEUTROPHILS % 56.6 % (38.7-80.0); PLATELET COUNT 106 x10e3/uL (140-360); RED BLOOD COUNT 3.29 x10e6/uL (4.3-5.7); RED CELL DISTRIBUTION WIDTH 17.2 % (11.7-14.4)
[2019-09-11] MEDS ORDERED: DEXTROSE 5% 250ML 250 ML IV ONE (02:42)
[2019-09-11] MEDS ORDERED: POTASSIUM CHLORIDE 20MEQ/100ML 200 ML ONE (02:43)
[2019-09-11] MEDS ORDERED: MIDAZOLAM HCL 5MG/ML 10ML VIAL 100 ML IV ONE (02:43)
[2019-09-11] MEDS ORDERED: FENTANYL 2000MCG/NS 250 250 ML ONE (02:44)
--- NOTE | 2019-09-11 03:00 | Diagnostic Imaging Report ---
EXAMINATION: CT of the chest with contrast, PE protocol. TECHNIQUE: Spiral CT images of the chest were performed from the lung apices through the level of the adrenal glands after the IV administration of 100 cc of Isovue 370. Thin section reconstructions were obtained with special concentration on the pulmonary arteries. Coronal and sagittal reformatted images were performed COMPARISON: CT chest 09/02/2019, portable chest performed same date CLINICAL HISTORY:Pneumonia, postintubation, suspect PE DISCUSSION: LINES AND TUBES: Endotracheal tube in place, with distal tip in the upper trachea at the level of the thoracic inlet approximately 7 cm above the vicky LUNGS: Filling defect noted in segmental branch to the anterior basal segment of the right lower lobe (series 9, images 73-76 and coronal images 45 and 46). No other filling defects are identified in the main, or left pulmonary artery to the segmental level. Bilateral upper and lower lobe predominantly peripheral, patchy focal groundglass opacities with visible intralobular lines. Some of these opacities have more central confluent areas of consolidation (for example series 10, image 27 in the upper lobes bilaterally). Compressive atelectasis of the right upper lobe. Consolidation with air bronchograms involving the greater portion of the right lower lobe (series 10, image 76). Mild compressive atelectasis of the left lower lobe. A few tree-in-bud opacities with associated bronchiectasis are noted in the medial aspect of the right middle lobe and lingula (for example series 10, image 91), stable since prior CT AIRWAYS: Major airways are clear, without endobronchial lesions. PLEURA: Small right pleural effusion which is partially loculated in the right upper lung. Small left pleural effusion. HEART AND MEDIASTINUM: Thyroid is unremarkable. Heart size is normal. No pericardial effusion. Atherosclerotic calcification of the coronary arteries and thoracic aortic arch. Aorta is not aneurysmal. Main pulmonary artery is normal in caliber. LYMPH NODES: No mediastinal, hilar or axillary adenopathy. ABDOMEN: Please see CT abdomen performed same day for further detail BONES AND SOFT TISSUES: No aggressive lytic lesions or suspicious focal sclerotic lesions. Degenerated discs in the thoracic spine. IMPRESSION: 1. Pulmonary embolism involving right lower lobe anterior basal segment branch. 2. Commonly reported imaging features of COVID 19 pneumonia are present. Other processes such as influenza pneumonia and organizing pneumonia, as can be seen with drug toxicity and connective tissue disease, can cause a similar imaging pattern. 3. Right lower lobe consolidation, which can be secondary to COVID 19 pneumonia, however, bacterial pneumonia is also a consideration. 4. Small bilateral pleural effusions. The right pleural effusion is partly loculated in the right upper lung. 5. Endotracheal tube has distal tip at the thoracic inlet approximately 7 cm above the vicky. 6. Stable changes in the medial right middle lobe and lingula consistent with HUSSAIN 7. Findings discussed with Dr. Mcintyre 09/11/2019 at 0252 hours Signed by: Dr. Chacho Mcfadden M.D. on 09/11/2019 2:56 AM
[2019-09-11] MEDS ORDERED: SODIUM BICARBONATE 8.4% INJ 50 ML SYR IV STA (03:07)
[2019-09-11] MEDS ORDERED: VANCOMYCIN 1GM/NS 250 ML 250 ML ONE (03:09)
[2019-09-11] MEDS ORDERED: HEPARIN 25,000 UNIT DRIP IV ONE (03:09)
--- NOTE | 2019-09-11 03:10 | Diagnostic Imaging Report ---
Examination: CT head without contrast Clinical Indication: Unresponsive. Technique: Transaxial noncontrast images from the skull base through the vertex were obtained. Sagittal and coronal reformatted images were done. Dose modulation, iterative reconstruction, and/or weight based adjustment of the mA/kV was utilized to reduce the radiation dose to as low as reasonably achievable. Comparison: None. Findings: There is significant motion artifact on the scan. Scalp: No abnormalities. Bones: Intact. No fractures. No blastic or lytic lesions. Brain sulci: Appropriate for patient's age. Ventricles: Normal in size and configuration. No hydrocephalus. Extra-axial space: No large hemorrhage.. Parenchyma: No large masses, large hemorrhage, or large acute or chronic cortical based vascular insults. There are patchy and confluent areas of hypoattenuation in the periventricular and subcortical white matter, nonspecific. Suprasellar region: No abnormalities. Craniocervical junction: The foramen magnum is patent. No Chiari one malformation. Impression: Despite limitation, no large intraparenchymal or extra-axial hemorrhage or large acute territorial infarct. Chronic microvascular ischemic change. Signed by: Dr. Glenny Painting M.D. on 09/11/2019 3:06 AM
[2019-09-11] MEDS ORDERED: MEROPENEM 1GM 100 ML IV ONE (03:11)
[2019-09-11] MEDS ORDERED: POTASSIUM CHLORIDE 20MEQ/100ML 200 ML IV ONE ×2 (03:15→09:00)
[2019-09-11] MEDS ORDERED: HEPARIN 25,000 UNIT 900 UNIT in DEXTROSE 5% 250ML 250 ML IV SCH (03:15)
--- NOTE | 2019-09-11 03:24 | Diagnostic Imaging Report ---
EXAMINATION: CT of the abdomen and pelvis with contrast. TECHNIQUE: Spiral CT images of the abdomen and pelvis were performed from the lung bases to the lesser trochanters after the intravenous administration of 100 cc of Isovue 370 and the oral administration of dilute Gastrografin. Coronal and sagittal reformatted images were obtained. COMPARISON: Portable chest 09/10/2019, CT abdomen and pelvis 08/19/2019 CLINICAL HISTORY:Free air under the hemidiaphragm, abdominal surgery 5 days ago with near total gastrectomy DISCUSSION: ABDOMEN/PELVIS: LOWER THORAX:Please see CT chest performed same date for further detail. HEPATOBILIARY: No focal hepatic lesions. No intra or extrahepatic biliary ductal dilation. GALLBLADDER: No radio-opaque stones or sludge. No wall thickening. SPLEEN: No splenomegaly. PANCREAS: No focal masses or ductal dilatation. ADRENALS: No nodules. Thickening of bilateral adrenal glands, left greater than right. KIDNEYS/URETERS: Symmetrical renal enhancement. No renal or ureteral calculi. Mild bilateral pelvocaliectasis. Stable 2.7 cm fluid density simple cyst in the left superior pole (series 13, image 24). No solid enhancing masses. PELVIC ORGANS/BLADDER: Moderate circumferential bladder wall thickening, which is irregular on its left lateral and posterior aspect. Multiple air foci are noted in the bladder wall, with air-fluid level in the anterior/nondependent portion of the bladder lumen Moderate prostatic enlargement. PERITONEUM/RETROPERITONEUM: Large pneumoperitoneum. Moderate free fluid in the posterior pelvis, which measures near fluid density. No well-defined enhancing fluid collections. LYMPH NODES: No intra-abdominal, retroperitoneal, pelvic or inguinal lymphadenopathy. VESSELS: The celiac trunk,superior and inferior mesenteric and bilateral renal arteries are patent The portal, superior mesenteric and splenic veins are patent. Atherosclerotic calcification of the abdominal aorta and iliac vessels. GI TRACT: Postsurgical changes in the region of the stomach. Multiple extraluminal foci of air are noted adjacent to linear hyperdensities suspected to be surgical sutures near the GE junction (for example series 13, images 22, 14), and anterior to the head of the pancreas (series 13). Multiple mildly dilated loops of small bowel are noted in the anterior peritoneal cavity, with maximal measurement of 3.1 cm (for example series 13, image 27) involving predominantly the jejunum and proximal ileum. Distal ileal loops are normal in caliber. No definite transition point is noted, and there is progressive transition to normal caliber in the mid to distal ileum. Mild circumferential wall thickening throughout the large bowel, however, the bowel is decompressed. No evidence of oral contrast extravasation. BONES AND SOFT TISSUE: No aggressive lytic or suspicious focal sclerotic lesions. Multilevel degenerated discs in the lower thoracic and lumbosacral spine, worse at L2-L3 L3-L4 and L5-S1. Facet hypertrophy L5-S1. Generalized osteopenia. Generalized anasarca. IMPRESSION: 1. Large pneumoperitoneum, greater than expected for 5 days postoperative state. Multiple extraluminal foci of air adjacent to surgical sutures near the GE junction are suspicious for anastomotic leakage or wound dehiscence. No oral contrast extravasation is noted. 2. Moderate circumferential bladder wall thickening, which is irregular in the left lateral and posterior aspect, unchanged since prior exam, however, multiple air foci are noted in the bladder wall, highly suspicious for emphysematous cystitis. An intraperitoneal bladder rupture is a less likely consideration for the pneumoperitoneum. 3. Multiple mildly dilated loops of small bowel without transition point likely reflect ileus. 4. Thickening of bilateral adrenal glands, likely representing hyperplasia. No focal lesions. Signed by: Dr. Chacho Mcfadden M.D. on 09/11/2019 3:21 AM
[2019-09-11 03:29] LABS: INR 1.55; PROTHROMBIN TIME 19.6 seconds (11.9-14.5)
[2019-09-11 03:32] LABS: AMYLASE 21 U/L (25-125)
[2019-09-11 03:38] LABS: LIPASE < 4 U/L (8-78)
[2019-09-11 03:39] LABS: ALANINE AMINOTRANSFERASE 22 IU/L (0-55); ALBUMIN/GLOBULIN RATIO 0.3 (0.8-2.0); ALKALINE PHOSPHATASE 44 IU/L (40-150); ANION GAP 12.8 mmol/L (8-16); BLOOD UREA NITROGEN 19 mg/dL (7-26); CALCIUM 7.1 mg/dL (8.4-10.2); CARBON DIOXIDE 16 mmol/L (22-29); CHLORIDE 116 mmol/L (98-107); CREATINE KINASE 15 IU/L (30-200); GLUCOSE 96 mg/dL (74-118); SODIUM 142 mmol/L (136-145)
[2019-09-11 03:41] LABS: POTASSIUM 2.8 mmol/L (3.5-5.1)
--- NOTE | 2019-09-11 03:50 | NUR ---
GAVE REPORT TO NURSE IN ICU. HAVE NOT SEEN THE PATIENT SINCE HE LEFT FOR CT OF CHEST/ABDOMEN/PELVIS. GAVE ALL PATIENT'S BELONGINGS TO THE ICU NURSE.
[2019-09-11 03:51] LABS: BUN/CREATININE RATIO 24 (6-25); CREATININE, SERUM 0.76 mg/dL (0.72-1.25); EST GLOMERULAR FILTRATION RATE > 60 ML/MIN (60-)
[2019-09-11 03:59] LABS: B-TYPE NATRIURETIC PEPTIDE2 185.8 pg/mL (0-100)
[2019-09-11] MEDS ORDERED: SODIUM BICARBONATE 8.4% SYRING 100 ML in DEXTROSE 5% 1,000 ML IV SCH ×2 (04:00→04:30)
[2019-09-11] MEDS ORDERED: MIDAZOLAM HCL 50 MG in SODIUM CHLORIDE 0.9% 100 ML 90 ML IV PRN (04:00)
[2019-09-11] MEDS ORDERED: DEXTROSE 5% 1,000 ML IV ONE (04:06)
[2019-09-11] MEDS ORDERED: AMIODARONE HCL 360MG 200 ML IV PRN (04:30)
[2019-09-11] MEDS ORDERED: AMIODARONE HCL 900 MG in DEXTROSE 5% 500ML 500 ML IV SCH (04:30)
[2019-09-11] MEDS ORDERED: FENTANYL CITRATE INJ 2,000 MCG in SODIUM CHLORIDE 0.9% 250ML 210 ML IV PRN (04:30)
[2019-09-11] MEDS ORDERED: AMIODARONE 900MG 500 ML IV ONE (04:41)
[2019-09-11] MEDS ORDERED: AMIODARONE HCL 360MG 200 ML IV SCH (05:00)
[2019-09-11] MEDS ORDERED: MAGNESIUM SULFATE 2GM/50ML IV ONE (05:15)
[2019-09-11] MEDS ORDERED: POTASSIUM PHOSPHATE 20 MM in SODIUM CHLORIDE 0.9% 250ML 250 ML IV SCH (05:15)
[2019-09-11] MEDS ORDERED: IOPAMIDOL 370 MG/ML 200 ML INFUS..BTL INJ ONE (05:16)
[2019-09-11] MEDS ORDERED: SODIUM CHLORIDE 0.9% 50ML 50 ML ONE (05:16)
[2019-09-11] MEDS ORDERED: CLINDAMYCIN PHOS 900MG/ 50ML 50 ML IV SCH (06:00)
[2019-09-11] MEDS ORDERED: MEROPENEM 1GRAM 1 GM in SODIUM CHLORIDE 0.9% 100 ML 100 ML IV SCH (06:00)
[2019-09-11] MEDS ORDERED: METRONIDAZOLE 500MG/NS 100ML 100 ML IV SCH (06:00)
--- NOTE | 2019-09-11 06:39 | Diagnostic Imaging Report ---
Examination: Single AP view of the chest. COMPARISON: Portable chest 09/10/2019, CT chest 09/11/2019 INDICATION: None. IMPRESSION: 1. Lines and Tubes: Interval placement of right-sided central line with distal tip projecting at the cavoatrial junction. 2. Otherwise no significant interval change since the prior exams. Signed by: Dr. Chacho Mcfadden M.D. on 09/11/2019 6:36 AM
[2019-09-11] MEDS ORDERED: VASOPRESSIN 100 UNIT in DEXTROSE 5% 100ML 100 ML IV PRN (06:45)
--- NOTE | 2019-09-11 06:50 | Operative Report ---
DATE OF PROCEDURE: SURGEON: Jose Candelario MD PROCEDURE: Central line placement under ultrasound guidance. PREOPERATIVE DIAGNOSES: Gastric cancer, metabolic acidosis, probable sepsis. POSTOPERATIVE DIAGNOSES: Gastric cancer, metabolic acidosis, probable sepsis. CONSENT: Procedure was deemed emergent due to hemodynamic instability. The patient was on Levophed. ANESTHESIA: 1% lidocaine for local anesthesia. PROCEDURE IN DETAIL: The right neck was prepped sterilely with chlorhexidine. A full-length sterile drape, sterile gown, sterile gloves, and mask were used. An ultrasound machine was used to locate the right internal jugular vein. 1% lidocaine was used for local anesthesia. The right internal jugular vein was cannulated under direct visualization with a 16-gauge needle. A wire was passed through the needle. The skin was dilated with a dilator. Triple-lumen catheter was placed over the wire by the Seldinger technique. All the ports were flushed. COMPLICATIONS: None. ESTIMATED BLOOD LOSS: None. Jose Candelario MD [facility] /[id number]
[2019-09-11] MEDS ORDERED: POTASSIUM CHLORIDE 20MEQ/100ML 100 ML IV ONE (07:00)
--- NOTE | 2019-09-11 07:00 | Consultation ---
DATE OF CONSULTATION: Pulmonary Critical Care Consultation CHIEF COMPLAINT: Hypotension, metabolic acidosis, and probable sepsis. HISTORY OF PRESENT ILLNESS: The patient is an 79-year-old man. He has a history of metastatic gastric cancer. He came in on the 01 of September with GI bleeding and anemia. He required blood transfusion. Upper endoscopy and biopsy showed invasive gastric carcinoma. He subsequently required a laparotomy and hemigastrectomy. He was doing well and he was actually scheduled for discharge. This evening, he became more disoriented. He had a low blood pressure. He had difficulty breathing and a rapid response was called. He required intubation. He also had a blood gas, that showed a profound metabolic acidosis and a CBC that showed a white count of 0.83. He received 3 L of IV fluids as well as initial antibiotics. CT scan of the chest showed a right lower lobe pneumonia as well as a small pulmonary embolism. There was free air in the abdomen from prior surgeries. PAST SURGICAL HISTORY: Status post recent hemigastrectomy. PAST MEDICAL HISTORY: 1. Gastric cancer. 2. No known cardiac history. SOCIAL HISTORY: Noncontributory. FAMILY HISTORY: Noncontributory. REVIEW OF SYSTEMS: The patient had decreased responsiveness. He had difficulty breathing. There was no reported chest pain. He had no nausea or vomiting. There was no reported melena or hematochezia. PHYSICAL EXAMINATION: VITAL SIGNS: The patient is now on Levophed and his blood pressure is 110/70, his heart rate is 120 to 130 and he is in atrial fibrillation. He has an oral endotracheal tube in place. He is on a PRVC mode of ventilation. He has a right IJ line in place. The site looks clean. CARDIAC: Reveals an irregularly irregular rhythm with normal S1 and S2. LUNGS: Auscultation of lungs shows decreased breath sounds at the bases. There is no wheezing. ABDOMEN: Soft and nontender. There are alex from recent laparotomy. EXTREMITIES: Show no leg edema or calf tenderness. There is no cyanosis or clubbing. IMPRESSION: 1. Aspiration pneumonia with septic shock. 2. Right lower lobe pulmonary embolism. 3. Metastatic gastric cancer. 4. Hypokalemia. 5. Neutropenia. PLAN: 1. The patient has started on broad-spectrum antibiotics after receiving intravenous fluid bolus. 2. Begin bicarbonate drip. 3. Replace potassium. 4. Monitor blood counts. 5. General Surgery to evaluate the patient for free air in the abdomen. 6. Heparin for PE. 7. Prognosis is poor. 8. Case discussed with Dr. Mcintyre of the emergency department, Dr. Garza, nursing staff, and Respiratory. MD DERRICK Amador/AYADL /[id number]
[2019-09-11] MEDS ORDERED: NOREPINEPHRINE 8 MG/D5W 250 ML 250 ML ONE (07:11)
[2019-09-11] MEDS ORDERED: VASOPRESSIN 100 UNIT in DEXTROSE 5% 100ML 100 ML IV SCH (07:15)
[2019-09-11] MEDS ORDERED: SODIUM CHLORIDE 0.9% 250ML 250 ML ONE (07:23)
[2019-09-11] MEDS ORDERED: SUCRALFATE 1 GM TAB PO SCH (07:30)
[2019-09-11] MEDS: INSULIN LISPRO 100 UNIT/1 ML 3ML VIAL SQ SCH ×2 (07:30→11:30)
[2019-09-11 07:50] LABS: ABG HCO3 16 mmol/L (22-26); ABG PCO2 48 mmHg (35-45); ABG PH 7.13 (7.35-7.45); ABG PO2 74 mmHg (80-105)
[2019-09-11] MEDS: BENZONATATE 100 MG CAP PO SCH (09:00)
[2019-09-11] MEDS: PANTOPRAZOLE 40 MG 10ML VIAL IV SCH (09:00)
[2019-09-11] MEDS ORDERED: SODIUM CHLORIDE 0.9% 1000ML 1,000 ML IV ONE (10:15)
[2019-09-11 10:34] LABS: BASOPHILS % 0.7 % (0.0-1.0); HEMATOCRIT 31.5 % (38.2-49.6); HEMOGLOBIN 9.7 g/dL (14.0-18.0); LYMPHOCYTES # (AUTO) 0.2 (1.0-3.2); MEAN CORPUSCULAR HEMOGLOBIN 28.1 pg (28-32); MEAN CORPUSCULAR HGB CONC 30.8 g/dL (31-35); MEAN CORPUSCULAR VOLUME 91.3 fL (81-99); MONOCYTES # (AUTO) 0.1 (0.2-0.8); MONOCYTES % 1.8 % (4.4-11.3); NEUTROPHILS # (AUTO) 2.5 (2.1-6.9); NEUTROPHILS % 90.1 % (38.7-80.0); RED BLOOD COUNT 3.45 x10e6/uL (4.3-5.7); RED CELL DISTRIBUTION WIDTH 17.3 % (11.7-14.4)
[2019-09-11 10:39] LABS: PLATELET COUNT 48 x10e3/uL (140-360)
[2019-09-11 10:56] LABS: ALANINE AMINOTRANSFERASE 31 IU/L (0-55); ALBUMIN 0.9 g/dL (3.5-5.0); ALBUMIN/GLOBULIN RATIO 0.4 (0.8-2.0); ALKALINE PHOSPHATASE 36 IU/L (40-150); ANION GAP 11.1 mmol/L (8-16); BLOOD UREA NITROGEN 20 mg/dL (7-26); BUN/CREATININE RATIO 23 (6-25); CARBON DIOXIDE 18 mmol/L (22-29); CHLORIDE 116 mmol/L (98-107); CREATININE, SERUM 0.88 mg/dL (0.72-1.25); EST GLOMERULAR FILTRATION RATE > 60 ML/MIN (60-); GLUCOSE 122 mg/dL (74-118); POTASSIUM 3.1 mmol/L (3.5-5.1); SODIUM 142 mmol/L (136-145)
[2019-09-11 10:59] LABS: CALCIUM 6.2 mg/dL (8.4-10.2)
[2019-09-11 11:03] LABS: BAND NEUTROPHILS % (MANUAL) 12 %; EOSINOPHILS % (MANUAL) 1 % (0-7); LYMPHOCYTES % (MANUAL) 35 % (19-48); METAMYELOCYTES % (MANUAL) 1 % (0-0); MONOCYTES % (MANUAL) 7 % (3.4-9.0); MYELOCYTES % (MANUAL) 7 % (0-0); NEUTROPHILS % (MANUAL) 37 % (40-74); NUCLEATED RED BLOOD CELLS 5
[2019-09-11 11:07] LABS: BURR CELLS MODERATE; PLATELET ESTIMATE SLIGHTLY DECREASED; RBC MORPHOLOGY COMMENT ABNORMAL; TEAR DROP CELLS FEW
[2019-09-11 11:08] LABS: ACANTHOCYTES FEW; ANISOCYTOSIS SLIGHT
[2019-09-11 11:10] LABS: SCHISTOCYTES RARE
[2019-09-11 11:11] LABS: PLATELET MORPHOLOGY COMMENT FEW LARGE
[2019-09-11] MEDS ORDERED: HYDROMORPHONE 1MG/1ML INJ IV PRN (11:15)
[2019-09-11] MEDS ORDERED: LORAZEPAM INJ 2 MG/ML VIAL IV PRN (12:30)
[2019-09-11] MEDS ORDERED: POTASSIUM CHLORIDE 20MEQ/100ML 100 ML IV SCH (13:00)
[2019-09-11 13:01] LABS: BAND NEUTROPHILS % (MANUAL) 19 %; LYMPHOCYTES % (MANUAL) 4 % (19-48); METAMYELOCYTES % (MANUAL) 2 % (0-0); MONOCYTES % (MANUAL) 1 % (3.4-9.0); MYELOCYTES % (MANUAL) 3 % (0-0); NEUTROPHILS % (MANUAL) 71 % (40-74)
[2019-09-11 13:02] LABS: ANISOCYTOSIS MODERATE; PLATELET ESTIMATE MARKEDLY DECREASED; PLATELET MORPHOLOGY COMMENT NORMAL; RBC MORPHOLOGY COMMENT ABNORMAL
[2019-09-11 13:03] LABS: ACANTHOCYTES FEW; BURR CELLS MODERATE; TEAR DROP CELLS FEW
[2019-09-11 13:06] LABS: POLYCHROMASIA FEW
--- NOTE | 2019-09-11 13:10 | Progress Note ---
DATE: Pulmonary Critical Care Progress Note SUBJECTIVE: The patient required intubation last night. He was started on pressors. X-ray subsequently showed right lower lobe pneumonia with some metastatic disease. PHYSICAL EXAMINATION: VITAL SIGNS: The patient is now on pressors. His heart rate is 108 and his blood pressure is 174/44 on maximum Levophed and vasopressin. He has an oral endotracheal tube. There is a right IJ line. The site looks clean. CARDIAC: Reveals tachycardia with normal S1 and S2. LUNGS: Auscultation of lungs reveals decreased breath sounds at the bases. There is no wheezing. ABDOMEN: Soft and nontender. There is no rebound or guarding. EXTREMITIES: Shows no leg edema or calf tenderness. NEUROLOGICAL: Shows no focal abnormalities. LABORATORY DATA: White blood cell count is 2.7 and hemoglobin is 8.7. The platelet count is 48. BUN to creatinine ratio is 20 to 0.88. The potassium is 3.1 and the carbon dioxide is 18. Chloride is 116. Lactic acid is 5.2 and the albumin is 0.9. IMPRESSION: 1. Septic shock secondary to pneumonia. 2. Metastatic gastric cancer. 3. Pulmonary embolism. 4. Leukopenia. 5. Thrombocytopenia. PLAN: 1. Prognosis is extremely poor. 2. I discussed case with Dr. Randy Garza, Dr. Rolando Vasquez, and the son. The family would like to withdraw support from the ventilator and the pressors. The purpose being not to prolong his suffering. 3. We will make arrangements for terminal oxidation along with palliative care. Jose Candelario MD [facility] /[id number]
--- NOTE | 2019-09-11 16:36 | NUR ---
Received Mr. Mann in bed, vent dependent via ETT. Vent set to PRVC mode Fio2 100%/P-10/R 25/TV 430. oxygen saturation mid to high 90's. Pt is hemodynamically very unstable. Levophed was at maximum and Vasopressin was also added at the maximum rate and also the patient was given a one liter bolus. Labs were sent with multiple critical values resulting. Dr. Beckwith and Dr. Candelario were made aware. Due to the poor prognosis, given his oncological situation and overall medical condition, the family was consulted and they opted to withdraw care given the medical futility of ongoing treatment. All family members that requested to say a personal farewell to the patient were allowed to do so, proper PPE's and instructions on donning and doffing the PPE's was provided by staff. All concerns were addressed by staff to the family's satisfaction as per the members present. The patient was medicated with Hydromorphone and lorazepam as ordered. Then life support measures were withdrawn. The patient's family were observing from a safe distance. At 1335 all vital ceased and the patient was pronounced by Dr. Anson Candelario. Post mortem care was provided and the patient remains will be picked up by the home of the family's choosing. All personal belongings will be sent with the patient.
[2019-09-11] MEDS ORDERED: CEFTRIAXONE SOD 1 GM/NS 50 ML 50 ML IV SCH (23:00)
--- NOTE | 2019-09-19 10:57 | NUR ---
Late entry: restraint log completed on P drive
== END 2019-09-11 20:15 | disposition expired | DRG 326 ==
LOC: ER 23:35 → ERHOLD 09-01 01:05 → MED/SURG 09-01 03:50 → ICU 09-05 15:32 → MED/SURG 09-06 18:37 → ICU 09-11 03:26
PROVIDERS: ADMIT Internal Medicine; ATTEND Internal Medicine
PROC: 30233N1 Transfusion of Nonautologous Red Blood Cells into Peripheral Vein, Percutaneous Approach (ICD-10-PCS; 2019-09-01)
PROC: 0DB68ZX Excision of Stomach, Via Natural or Artificial Opening Endoscopic, Diagnostic (ICD-10-PCS; 2019-09-02)
PROC: 0DB78ZX Excision of Stomach, Pylorus, Via Natural or Artificial Opening Endoscopic, Diagnostic (ICD-10-PCS; 2019-09-02)
PROC: 0DB90ZZ Excision of Duodenum, Open Approach (ICD-10-PCS; 2019-09-05)
PROC: 0D160ZA Bypass Stomach to Jejunum, Open Approach (ICD-10-PCS; 2019-09-05)
PROC: 0DB60ZZ Excision of Stomach, Open Approach (ICD-10-PCS; principal; 2019-09-05 11:32)
PROC: 02HV33Z Insertion of Infusion Device into Superior Vena Cava, Percutaneous Approach (ICD-10-PCS; 2019-09-11)
PROC: B548ZZA Ultrasonography of Superior Vena Cava, Guidance (ICD-10-PCS; 2019-09-11)
PROC: 3E043XZ Introduction of Vasopressor into Central Vein, Percutaneous Approach (ICD-10-PCS; 2019-09-11)
PROC: 5A1935Z Respiratory Ventilation, Less than 24 Consecutive Hours (ICD-10-PCS; 2019-09-11)
PROC: 0BH17EZ Insertion of Endotracheal Airway into Trachea, Via Natural or Artificial Opening (ICD-10-PCS; 2019-09-11)
DX: C16.3 Malignant neoplasm of pyloric antrum (principal); I26.99 Other pulmonary embolism without acute cor pulmonale; A41.9 Sepsis, unspecified organism; R65.21 Severe sepsis with septic shock; J69.0 Pneumonitis due to inhalation of food and vomit; E43 Unspecified severe protein-calorie malnutrition; C77.2 Secondary and unspecified malignant neoplasm of intra-abdominal lymph nodes; D62 Acute posthemorrhagic anemia; E87.2 Acidosis; Z68.1 Body mass index [BMI] 19.9 or less, adult; R18.8 Other ascites; R63.4 Abnormal weight loss; E11.9 Type 2 diabetes mellitus without complications; N40.0 Benign prostatic hyperplasia without lower urinary tract symptoms; D63.0 Anemia in neoplastic disease; R53.81 Other malaise; R63.0 Anorexia; R13.10 Dysphagia, unspecified; E87.6 Hypokalemia; D70.9 Neutropenia, unspecified; Z79.84 Long term (current) use of oral hypoglycemic drugs; Z11.59 Encounter for screening for other viral diseases; I10 Essential (primary) hypertension
CPT/HCPCS: 36415; 36600; 43235; 70450; 71045; 71260; 74177; 80048; 80053; 82150; 82378; 82550; 82553; 82607; 82728; 82746; 82805; 82948; 83540; 83605; 83690; 83735; 83880; 84100; 84466; 84484; 85014; 85018; 85025; 85379; 85610; 85730; 86850; 86900; 86920; 87040; 88309; 93005; 93306; 94002; 97139; J0330; J0694; J0696; J1170; J1756; J1940; J2001; J2060; J2185; J2250; J2310; J2405; J2710; J3010; J3370; J3420; J3480; J7030; J7042; J7050; J7070; J7121; P9016; Q9967; U0002